=== PATIENT | male | born 1950 | race American Indian/Alaskan Native ===

== ENCOUNTER 2017-02-05 06:10 | Day surgery (SDC) | payer MEDICARE ==
[~2017-02-05 06:10] MED LIST: NACL 0.9% 1000 ML 1,000 ML IV SCH
[2017-02-05] MEDS ORDERED: FLUSH HEPARIN IV ONE (06:28)
[2017-02-05 07:23] LABS: Eosinophils % (Auto) 3.9 % (0.0-4.3); Hematocrit 36.9 % (35.5-45.6); Hemoglobin 12.4 gm/dl (11.8-15.2); Mean Corpuscular HGB Conc 34 % (32-34); Mean Corpuscular Hemoglobin 30 pg (28-32); Mean Corpuscular Volume 89 fl (84-94); Platelet Count 146 K/mm3 (140-440); Red Blood Count 4.15 M/mm3 (3.65-5.03)
[2017-02-05 07:38] LABS: BUN/Creatinine Ratio 18.18; Blood Urea Nitrogen 20 mg/dL (9-20); Calcium 9.1 mg/dL (8.4-10.2); Carbon Dioxide 26 mmol/L (22-30); Glucose 212 mg/dL (75-100); INR 1.1 (0.87-1.13); Sodium 138 mmol/L (137-145)
[2017-02-05 07:39] LABS: Partial Thromboplastin Time 27.5 Sec. (24.2-36.6)
[2017-02-05] MEDS ORDERED: HEPARIN/NS 5000 UNIT/500ML(CATH LAB) 1,000 ML IR ONE (07:49)
[2017-02-05] MEDS ORDERED: HEPARIN 10,000 UNITS/10 ML ONE (07:49)
[2017-02-05] MEDS ORDERED: ANCEF/STERILE WATER 2 GM/20 ML 2 GM/20 ML SYRINGE IV ONE (07:50)
[2017-02-05 08:24] LABS: Anion Gap 16 mmol/L
[2017-02-05 08:25] LABS: Potassium 5.3 mmol/L (3.6-5.0)
[2017-02-05] MEDS: XYLOCAINE 1%/ EPI 1:100,000 INFILTRATI ONE ×2 (08:36→08:50)
[2017-02-05] MEDS: ANCEF/STERILE WATER 2 GM/20 ML 2 GM/20 ML SYRINGE IV NR ×2 (08:45→08:55)
[2017-02-05] MEDS: VERSED ONE ×5 (08:53→09:36)
[2017-02-05] MEDS: SUBLIMAZE ONE ×5 (08:54→09:36)
[2017-02-05] MEDS ORDERED: NACL 0.9% 1000 ML 1,000 ML ONE (09:05)
[2017-02-05] MEDS ORDERED: NITROGLYCERIN SYRINGE 3 ML ONE (09:29)
--- NOTE | 2017-02-05 10:17 | Short Stay Summary ---
Short Stay Documentation Date of service: 02/05/17 Narrative H&P: See H&P - History H&P: obtained from office - Allergies and Medications Current Medications: Allergies No Known Allergies Allergy (Verified 02/13/15 12:20) Home Medications Medication Instructions Recorded Confirmed Last Taken Type Aspirin EC [Aspirin Enteric Coated 81 mg PO QDAY 02/05/17 02/05/17 02/02/17 History TAB] AtorvaSTATin [Lipitor] 40 mg PO HS 02/05/17 02/05/17 02/04/17 History Carvedilol [Coreg] 2 mg PO BID 02/05/17 02/05/17 02/04/17 History Furosemide [Furosemide] 40 mg PO QDAY 02/05/17 02/05/17 02/04/17 History Gabapentin [Neurontin] 800 mg PO Q8H 02/05/17 02/05/17 02/04/17 History Magnesium 30 mg PO QDAY 02/05/17 02/05/17 02/04/17 History Oxycodone HCl/Acetaminophen 1 each PO Q6HR PRN 02/05/17 02/05/17 02/04/17 History [Percocet 10/325 mg] Tizanidine HCl [Zanaflex] 4 mg PO TID PRN 02/05/17 02/05/17 02/04/17 History Active Medications Cefazolin Sodium (Ancef/Sterile Water 2 Gm/20 Ml) 2 gm in 20 mls @ 80 mls/hr IV PREOP NR PRN Reason: Protocol Stop: 02/05/17 23:59 Last Admin: 02/05/17 08:45 Dose: 20 mls Sodium Chloride (Nacl 0.9% 1000 Ml) 1,000 mls @ 42 mls/hr IV DIRECT MICHELLE Last Admin: 02/05/17 07:52 Dose: 42 mls/hr - Brief post op/procedure progress note Date of procedure: 02/05/17 Pre-op diagnosis: PVD with Right Lower Extremity Claudication Post-op diagnosis: same Procedure: 1. Ultrasound-Guided Access Left Common Femoral Artery 2. Diagnostic Aortogram with Right Lower Extremity Runoff (No Previous Fills for Comparison) 3. Atherectomy and Angioplasty of Right SFA and Popliteal Arteries with 2.4/ 3.4 JetStream Atherectomy Catheter and 6 x 100 Lutonix Drug-Coated Balloon 4. Angioplasty and Stenting of Right External Iliac Artery with 7 x 38 iCast Stent Graft 5. Closure of Left Femoral Arteriotomy with ProGlide Closure Device 6. Radiologic Supervision with Interpretation Anesthesia: local, other (IV sedation) Surgeon: JO WOOD Estimated blood loss: minimal Pathology: none Condition: stable - Disposition Condition at discharge: Good Disposition: DISCHARGED TO HOME OR SELFCARE Short Stay Discharge Plan Activity: other (no strenuous activity for 24 hours) Wound: open to air, keep clean and dry, remove dressing (24-hours) Follow up with: JO WOOD MD [Staff Physician] - 14 Days Prescriptions: Clopidogrel Bisulfate [Plavix] 75 mg PO DAILY #30 tablet
[2017-02-05] MEDS ORDERED: PLAVIX PO ONE (10:19)
--- NOTE | 2017-02-05 10:44 | Operative Report ---
Operative Report Operative Report: Date of Procedure: 02/05/2017 Pre-operative Diagnosis: PVD with Right Lower Extremity Claudication Post-operative Diagnosis: Same Procedure(s): 1. Ultrasound-Guided Access Left Common Femoral Artery 2. Diagnostic Aortogram with Right Lower Extremity Runoff (No Previous Fills for Comparison) 3. Atherectomy and Angioplasty of Right SFA and Popliteal Arteries with 2.4/ 3.4 JetStream Atherectomy Catheter and 6 x 100 Lutonix Drug-Coated Balloon 4. Angioplasty and Stenting of Right External Iliac Artery with 7 x 38 iCast Stent Graft 5. Closure of Left Femoral Arteriotomy with ProGlide Closure Device 6. Radiologic Supervision with Interpretation Surgeon: Nino Greenwood M.D. Mcat Instructor: None Anesthesia: Local and IV sedation EBL: Minimal Counts: Correct Complications: None Condition: Stable Specimen: None Indication: The patient is a 66-year-old male with a history of peripheral vascular disease and short distance claudication. He had an arterial duplex that suggested possible SFA and popliteal artery disease. He is in need of arteriogram and possible intervention to resolve his complaints. He was given the risk, benefits, and alternative procedures and consented to the procedure. Angiographic Findings: The aortogram demonstrated bilateral renal arteries widely patent. The aorta and bilateral common iliac arteries widely patent. There was approximately 60% stenosis of the proximal right external iliac artery. I was approximately 40% stenosis of the origin of the right internal iliac artery. The common femoral artery and the profunda widely patent. In the mid SFA that was approximately 60 % stenosis short segment and approximately 50% stenosis short segment of the distal SFA. The proximal popliteal artery was widely patent however there was approximately 95% stenosis and a short segment of the mid popliteal artery. The remainder of the popliteal artery was widely patent. The anterior tibial artery was occluded shortly after it's origin and reconstituted in the dorsalis pedis artery from collaterals off the peroneal artery. The peroneal artery was widely patent. The posterior tibial artery was atretic throughout its course and the distal posterior tibial artery filled retrograde through collaterals from the peroneal artery although there was no evidence of occlusion in the posterior tibial artery. After intervention the external iliac artery was widely patent without any residual stenosis. The lesion in the mid SFA had approximately 10% residual stenosis with a small dissection that was not flow- limiting. The remainder of the SFA as well as the entire popliteal artery were widely patent without any residual stenosis. Description of Procedure: The patient was brought to the laborer road and laid in supine position. After he was adequately sedated his left groin was prepped and draped in normal sterile fashion. Ultrasound was used to identify the left common femoral artery and overlying skin and soft tissue was anesthetized with lidocaine. A small stab incision was made and then a micropuncture technique was used to access the artery under ultrasound guidance. A 5 Kosovan sheath was then placed by Seldinger technique. A Bentson wire was advanced through the aorta and then the Omni Flush catheter was advanced to the level of the renal arteries and the aortogram was performed. The Bentson wire in catheter were advanced over the bifurcation and the right lower extremity runoff was performed with the previously described findings. I was able to cross all lesions using a Bentson wire and vertebral catheter. The 5 Kosovan sheath was then exchanged for a 67 Kosovan 45 cm destination sheath and at this point the patient was systemically heparinized with 5000 units of heparin IV. The Bentson wire was then exchanged for a 0.014 Spartacore wire. I advanced the 2.4/3.4 JetStream atherectomy catheter into position, just proximal to the SFA lesion, and performed atherectomy with both blades down and blades up. This was repeated on the remaining lesions in the distal SFA as well as the popliteal artery. I then performed balloon angioplasty of entire segment with a 6 x 200 balloon however at the proximalmost lesion there was residual stenosis of approximately 30% with an area of dissection so I balloon this with a 6 x 100 Lutonix Drug-Coated Balloon. The result was approximately 10% residual stenosis with a small dissection that was not flow-limiting. I then pulled the sheath back into the right common iliac artery and performed a left anterior oblique injection demonstrated the right external iliac artery stenosis. I treated this with a 7 x 38 iCast Balloon Expandable Stent Graft with a result of a widely patent artery with no residual stenosis. I pulled the sheath back into the left common iliac artery and advanced the Bentson wire into the aorta. I performed a left anterior oblique injection of the left common femoral artery to demonstrate this sheath was well above the bifurcation so I used the ProGlide device to close one left femoral arteriotomy. The patient tolerated the procedure well. All sponge, needle, and instrument counts were correct. The patient was taken to the recovery area in stable condition.
[2017-02-05 11:36] VITALS: BP 201/107
[2017-02-05] MEDS ORDERED: PERCOCET 5/325 PO ONE (12:01)
--- NOTE | 2017-02-05 15:58 | Vascular Lab Report ---
MISCELLANEOUS VESSEL IDENTIFICATION: COMMENTS ON THE SCAN: The left common femoral artery was identified and under real-time ultrasound guidance was cannulated. IMPRESSION: Successful ultrasound guided arterial cannulation.
== END 2017-02-05 12:45 | disposition home or self-care (01) ==
LOC: OPU 06:10
PROVIDERS: ATTEND Surgery Vascular Surgery
DX: I70.213 Atherosclerosis of native arteries of extremities with intermittent claudication, bilateral legs (principal); Z87.891 Personal history of nicotine dependence; Z79.01 Long term (current) use of anticoagulants
CPT/HCPCS: 36415; 37221; 37225; 75625; 75716; 76937; 80048; 85025; 85610; 85730; C1724; C1725; C1760; C1769; C1874; C1887; C2623; J0690; J1644; J2250; J3010; J7030; Q9967; J1642

== ENCOUNTER 2021-10-17 18:09 | Inpatient (IN) | payer MEDICARE ==
--- NOTE | 2021-10-17 19:43 | Emergency Department Report ---
ED Shortness of Breath HPI - General Chief Complaint: Dyspnea/Respdistress Stated Complaint: PEG/HIGH GLUCOSE Time Seen by Provider: 10/17/21 19:01 Source: patient Mode of arrival: Ambulatory Limitations: No Limitations - History of Present Illness Initial Comments: 71-year-old male with a past medical history of CHF, diabetes, hypertension, AICD and pacemaker presents to the hospital requesting oxygen for recently diagnosed Covid pneumonia. Patient was recently made to [facility] October 12- for Covid pneumonia. He was discharged on albuterol, Thorazine, Plavix, and dexamethasone. He was informed to discontinue his Lasix and spironolactone. Patient only complains of mild intermittent shortness of breath and persistent cough. Does not endorse chest pain, orthopnea, PND, worsening leg edema. Patient states when he was discharged from [facility], he was informed if he needed oxygen to come to the hospital. Patient is initial room air saturation is 96% without any respiratory distress noted during initial interview. Upon further interviewing patient he endorses that since discharge from the hospital and starting Decadron his glucose has been reading high on the glucometer. His states that he has been slight gauge had generalized weakness with ambulation. Patient takes Tresiba sliding scale subcu, Metformin 500 mg twice daily for glucose greater than 170-180 and glimepiride unknown dose daily. Despite these medications glucose has remained elevated. BG 433 Patient's medications include Atorvastatin 80 mg daily Metformin 500 mg twice daily RELION glucose tablets as needed Carvedilol 12.5 mg twice daily Tresiba sliding scale insulin Amlodipine 5 mg daily Albuterol inhaler Dexamethasone 60 mg daily x6 days started on October 15 Thorazine 25 mg 3 times daily as needed hiccups Plavix 25 mg daily and patient also states that he is on questionable glimepiride unknown dose daily Meds on hold Spironolactone 25 mg daily Furosemide 40 mg daily - Related Data Home Medications Medication Instructions Recorded Confirmed Last Taken Aspirin EC [Halfprin EC] 81 mg PO QDAY 02/05/17 09/26/19 02/02/17 AtorvaSTATin [Lipitor] 40 mg PO HS 02/05/17 09/26/19 02/04/17 Furosemide 40 mg PO QDAY 02/05/17 09/26/19 02/04/17 Gabapentin [Neurontin] 800 mg PO Q8H 02/05/17 09/26/19 02/04/17 Magnesium 30 mg PO QDAY 02/05/17 09/26/19 02/04/17 Oxycodone HCl/Acetaminophen 1 each PO Q6HR PRN 02/05/17 09/26/19 02/04/17 [Percocet 10/325 mg] Tizanidine HCl [Zanaflex] 4 mg PO TID PRN 02/05/17 09/26/19 02/04/17 carvediloL [Coreg] 2 mg PO BID 02/05/17 09/26/19 02/04/17 Previous Rx's Medication Instructions Recorded Last Taken Type Clopidogrel Bisulfate [Plavix] 75 mg PO DAILY #30 tablet 02/05/17 Unknown Rx Azithromycin [Zithromax TAB] 500 mg PO QDAY #3 tablet 09/27/19 Unknown Rx Oseltamivir [Tamiflu] 75 mg PO BID #6 capsule 09/27/19 Unknown Rx Spironolactone [Aldactone] 25 mg PO QDAY #30 tablet 09/27/19 Unknown Rx amLODIPine 10 mg PO DAILY #30 tablet 09/27/19 Unknown Rx lisinopriL [Zestril TAB] 20 mg PO DAILY #30 tablet 09/27/19 Unknown Rx Allergies Allergy/AdvReac Type Severity Reaction Status Date / Time No Known Allergies Allergy Verified 02/13/15 12:20 ED Review of Systems ROS: Stated complaint: PEG/HIGH GLUCOSE Other details as noted in HPI Comment: All other systems reviewed and negative ED Past Medical Hx - Past Medical History Hx Hypertension: Yes Hx Congestive Heart Failure: Yes Hx Diabetes: Yes (pt takes insulin) Hx Arthritis: Yes Hx HIV: No - Surgical History Hx Pacemaker: Yes Hx Internal Defibrillator: Yes - Social History Smoking Status: Never Smoker - Medications Home Medications: Home Medications Medication Instructions Recorded Confirmed Last Taken Type Aspirin EC [Halfprin EC] 81 mg PO QDAY 02/05/17 09/26/19 02/02/17 History AtorvaSTATin [Lipitor] 40 mg PO HS 02/05/17 09/26/19 02/04/17 History Clopidogrel Bisulfate [Plavix] 75 mg PO DAILY #30 tablet 02/05/17 09/26/19 Unknown Rx Furosemide 40 mg PO QDAY 02/05/17 09/26/19 02/04/17 History Gabapentin [Neurontin] 800 mg PO Q8H 02/05/17 09/26/19 02/04/17 History Magnesium 30 mg PO QDAY 02/05/17 09/26/19 02/04/17 History Oxycodone HCl/Acetaminophen 1 each PO Q6HR PRN 02/05/17 09/26/19 02/04/17 History [Percocet 10/325 mg] Tizanidine HCl [Zanaflex] 4 mg PO TID PRN 02/05/17 09/26/19 02/04/17 History carvediloL [Coreg] 2 mg PO BID 02/05/17 09/26/19 02/04/17 History Azithromycin [Zithromax TAB] 500 mg PO QDAY #3 tablet 09/27/19 Unknown Rx Oseltamivir [Tamiflu] 75 mg PO BID #6 capsule 09/27/19 Unknown Rx Spironolactone [Aldactone] 25 mg PO QDAY #30 tablet 09/27/19 Unknown Rx amLODIPine 10 mg PO DAILY #30 tablet 09/27/19 Unknown Rx lisinopriL [Zestril TAB] 20 mg PO DAILY #30 tablet 09/27/19 Unknown Rx ED Physical Exam - General Limitations: No Limitations - Other Other exam information: General: No acute distress Head: Atraumatic Eyes: normal appearance Neck: Normal appearance, no midline tenderness Chest: Clear to auscultation bilaterally, frequent cough CV: Regular rate and rhythm Abdomen: Soft, normal bowel sounds, nontender, nondistended, no rebound or guarding Back: Normal inspection Extremity: Normal inspection, full range of motion, no calf tenderness or leg edema Neuro: Alert O x 3, no facial asymmetry, speech clear, no gross motor sensory deficit Psych: Appropriate behavior Skin: No rash ED Course Vital Signs 10/17/21 18:49 Temperature 98.5 F Pulse Rate 89 Respiratory 20 Rate Blood Pressure 153/77 O2 Sat by Pulse 96 Oximetry - Reevaluation(s) Reevaluation #1: 10/17/21 19:55 Patient's saturation at rest 95%. Amatory sat 93%. Based on this patient does not meet criteria for home oxygen saturation Blood glucose 433 patient is now agreeable to labs and blood work at this time Reevaluation #2: 10/17/21 21:20 Patient does not currently have IV access. Patient refused to transfer EJ. Nurses will attempt peripheral access with the vein finder ED Medical Decision Making - Lab Data Result diagrams: 10/17/21 19:54 10/17/21 19:54 Lab Results 10/17/21 10/17/21 10/17/21 Range/Units 19:37 19:54 19:54 WBC 16.4 H (4.5-11.0) K/mm3 RBC 4.48 (3.65-5.03) M/mm3 Hgb 12.0 (11.8-15.2) gm/dl Hct 38.1 (35.5-45.6) % MCV 85 (84-94) fl MCH 27 L (28-32) pg MCHC 32 (32-34) % RDW 14.9 (13.2-15.2) % Plt Count 303 (140-440) K/mm3 Seg Neutrophils % Business Manager VBG pH (7.320-7.420) Sodium 129 L (137-145) mmol/L Potassium 5.9 H (3.6-5.0) mmol/L Chloride 95.3 L (98-107) mmol/L Carbon Dioxide 20 L (22-30) mmol/L Anion Gap 20 mmol/L BUN 56 H (9-20) mg/dL Creatinine 2.0 H (0.8-1.3) mg/dL Estimated GFR 40 ml/min BUN/Creatinine Ratio 28 % Glucose 480 H (75-100) mg/dL POC Glucose 433 H (70-105) mg/dL Calcium 9.2 (8.4-10.2) mg/dL Total Bilirubin 0.40 (0.1-1.2) mg/dL AST 24 (5-40) units/L ALT 41 (7-56) units/L Alkaline Phosphatase 146 H (35-129) units/L Troponin T (0.00-0.029) ng/mL Total Protein 7.3 (6.3-8.2) g/dL Albumin 3.4 L (3.9-5) g/dL Albumin/Globulin Ratio 0.9 % 10/17/21 10/17/21 Range/Units 19:54 19:54 WBC (4.5-11.0) K/mm3 RBC (3.65-5.03) M/mm3 Hgb (11.8-15.2) gm/dl Hct (35.5-45.6) % MCV (84-94) fl MCH (28-32) pg MCHC (32-34) % RDW (13.2-15.2) % Plt Count (140-440) K/mm3 Seg Neutrophils % VBG pH 7.384 (7.320-7.420) Sodium (137-145) mmol/L Potassium (3.6-5.0) mmol/L Chloride (98-107) mmol/L Carbon Dioxide (22-30) mmol/L Anion Gap mmol/L BUN (9-20) mg/dL Creatinine (0.8-1.3) mg/dL Estimated GFR ml/min BUN/Creatinine Ratio % Glucose (75-100) mg/dL POC Glucose (70-105) mg/dL Calcium (8.4-10.2) mg/dL Total Bilirubin (0.1-1.2) mg/dL AST (5-40) units/L ALT (7-56) units/L Alkaline Phosphatase (35-129) units/L Troponin T 0.064 H (0.00-0.029) ng/mL Total Protein (6.3-8.2) g/dL Albumin (3.9-5) g/dL Albumin/Globulin Ratio % - EKG Data -: EKG Interpreted by Me (atrial sensed, ventriuclar paced rhythm rate 84) EKG shows normal: sinus rhythm, ST-T waves (no stemi) Rate: normal - Radiology Data Radiology results: report reviewed CHEST PA AND LATERAL VIEWS INDICATION: recent covid, sob. COMPARISON: 09/24/2019 FINDINGS: Support devices: Cardiac leads are unchanged. Heart: Within normal limits. Lungs/Pleura: There is mild airspace disease in the right lower lobe. Left lung appears clear. No pleural abnormality. IMPRESSION: 1. Mild right lower lobe airspace disease concerning for pneumonia. - Medical Decision Making 71-year-old male presents to the hospital with symptoms of generalized weakness and hyperglycemia. No signs of significant hypoxia requiring supplemental ox ygen. Suspect that patient generalized weakness is related to hyperglycemia secondary to steroids despite taking his diabetes medications. Case discussed with respiratory technician and will consult. Medications ordered for hyperkalemia. Patient to be admitted to hospital service Critical Care Time: Yes Critical care time in (mins) excluding proc time.: 35 Critical care attestation.: If time is entered above; I have spent that time in minutes in the direct care of this critically ill patient, excluding procedure time. Critical Care Time: 035 Minutes of critical care time excluding procedures were used in the care of the patient. I discussed treatment plan with the nursing team members. I r eviewed electronic record. I spoke with family to obtain medical history. Patient required multiple interventions and reassessments. Spoke with hospitalist and consultants for collaborative care. Patient will be admitted to night hospitalist. Signout to Dr. Solomon to communicate with the night ospitalist ED Disposition Clinical Impression: Pneumonia due to COVID-19 virus, Steroid-induced hyperglycemia, Uncontrolled diabetes mellitus, Hyperkalemia, Renal insufficiency Disposition: ADMITTED INPATIENT Is pt being admited?: Yes Condition: Stable Instructions: Bacterial Pneumonia (ED), Diabetes Mellitus Type 2 in Adults (ED) Time of Disposition: 21:15
[2021-10-17] MEDS ORDERED: INSULIN REGULAR, HUMAN 100 UNITS/1 ML IV ONE (19:50)
[2021-10-17 20:11] LABS: Hematocrit 38.1 % (35.5-45.6); Mean Corpuscular HGB Conc 32 % (32-34); Mean Corpuscular Volume 85 fl (84-94); Platelet Count 303 K/mm3 (140-440); Red Blood Count 4.48 M/mm3 (3.65-5.03); Red Cell Distribution Width 14.9 % (13.2-15.2)
[2021-10-17 20:34] LABS: Albumin 3.4 g/dL (3.9-5); Calcium 9.2 mg/dL (8.4-10.2)
--- NOTE | 2021-10-17 20:38 | XRay Report ---
CHEST PA AND LATERAL VIEWS INDICATION: recent covid, sob. COMPARISON: 09/24/2019 FINDINGS: Support devices: Cardiac leads are unchanged. Heart: Within normal limits. Lungs/Pleura: There is mild airspace disease in the right lower lobe. Left lung appears clear. No ple ural abnormality. IMPRESSION: 1. Mild right lower lobe airspace disease concerning for pneumonia. Signer Name: Abiodun Gee MD Signed: 10/17/2021 8:33 PM Workstation Name: [email or web address]
[2021-10-17] MEDS ORDERED: ALBUTEROL 2.5 MG/3 ML NEBU IH ONE (20:55)
[2021-10-17] MEDS ORDERED: SODIUM BICARB 8.4% 50 MEQ/50 ML SYRINGE IV ONE (20:57)
[2021-10-17] MEDS ORDERED: SODIUM POLYSTYRENE 15 GM/60 ML ORAL LIQD PO ONE (20:57)
[2021-10-17] MEDS ORDERED: SODIUM POLYSTYRENE 15 GM/60 ML ORAL LIQD PR ONE (21:07)
[2021-10-17] MEDS ORDERED: FUROSEMIDE 40 MG/4 ML INJ IV ONE (21:13)
[2021-10-17] MEDS ORDERED: SODIUM CHLORIDE 0.9% 500 ML 500 ML IV ONE (21:14)
[2021-10-17] MEDS ORDERED: SODIUM CHLORIDE 0.9% 1000 ML 1,000 ML IV ONE (21:14)
[2021-10-17 21:29] LABS: Chol/HDL Ratio 3.16 %
[2021-10-17] MEDS ORDERED: CALC GLUCONATE 1GM/NS 100 ML 1 GM/100 ML BAG IV ONE (22:00)
[2021-10-17] MEDS ORDERED: ONDANSETRON 4 MG/2 ML INJ IV PRN ×2 (22:23→22:42)
[2021-10-17] MEDS ORDERED: ACETAMINOPHEN 325 MG TAB PO PRN ×2 (22:23→22:42)
[2021-10-17] MEDS ORDERED: HYDROmorphone 1 MG/1 ML INJ IV PRN (22:42)
[2021-10-17] MEDS ORDERED: MORPHINE 2 MG/1 ML INJ IV PRN (22:42)
[2021-10-17] MEDS ORDERED: DEXTROSE 50% IN WATER (25GM) 50 ML SYRINGE IV PRN (22:46)
--- NOTE | 2021-10-17 22:51 | History and Physical Report ---
History of Present Illness Date of examination: 10/17/21 Date of admission: 10/17/21 Chief complaint: Dyspnea, respiratory distress History of present illness: 71-year-old male with history of CHF, diabetes, hypertension, AICD and pacemaker presents to the hospital requesting oxygen for recently diagnosed Covid pneumonia. Patient was recently admitted to [facility] October 12 for Covid pneumonia. He was discharged on albuterol, Thorazine, Plavix, and dex amethasone. He was informed to discontinue his Lasix and spironolactone. Patient only complains of mild intermittent shortness of breath and persistent cough. Does not endorse chest pain, orthopnea, PND, worsening leg edema. Patient states when he was discharged from [facility], he was informed if he needed oxygen to come to the hospital. Patient is initial room air saturation is 96% without any respiratory distress noted during initial interview. Upon further interviewing patient he endorses that since discharge from the hospital and starting Decadron his glucose has been reading high on the glucometer. His states that he has been slight gauge had generalized weakness with a mbulation. Patient takes Tresiba sliding scale subcu, Metformin 500 mg twice daily for glucose greater than 170-180 and glimepiride unknown dose daily. Despite these medications glucose has remained elevated. BG 433 In the emergency room patient WBC 16.4, BUN of 56 creatinine of 2.0 and blood gl ucose of 480, chest x-ray showed mild right lower lobe airspace disease concerning for pneumonia. No signs of significant hypoxia requiring supplemental oxygen. Suspect that patient generalized weakness is related to hyperglycemia secondary to steroids despite taking his diabetes medications. Case discussed with program/music director and will consult. Medications ordered for hyperkalemia. Patient to be admitted to hospital service Past History Past Medical History: arthritis, diabetes, heart failure, hypertension, other ( COVID-19 positive test (U07.1, COVID-19) with Acute Pneumonia (J12.89, Other viral pneumonia)(If respiratory failure or sepsis present, add as separate assessment) ) Medications and Allergies Allergies Allergy/AdvReac Type Severity Reaction Status Date / Time No Known Allergies Allergy Verified 02/13/15 12:20 Home Medications Medication Instructions Recorded Confirmed Last Taken Type Aspirin EC [Halfprin EC] 81 mg PO QDAY 02/05/17 09/26/19 02/02/17 History AtorvaSTATin [Lipitor] 40 mg PO HS 02/05/17 09/26/19 02/04/17 History Clopidogrel Bisulfate [Plavix] 75 mg PO DAILY #30 tablet 02/05/17 09/26/19 Unknown Rx Furosemide 40 mg PO QDAY 02/05/17 09/26/19 02/04/17 History Gabapentin [Neurontin] 800 mg PO Q8H 02/05/17 09/26/19 02/04/17 History Magnesium 30 mg PO QDAY 02/05/17 09/26/19 02/04/17 History Oxycodone HCl/Acetaminophen 1 each PO Q6HR PRN 02/05/17 09/26/19 02/04/17 History [Percocet 10/325 mg] Tizanidine HCl [Zanaflex] 4 mg PO TID PRN 02/05/17 09/26/19 02/04/17 History carvediloL [Coreg] 2 mg PO BID 02/05/17 09/26/19 02/04/17 History Azithromycin [Zithromax TAB] 500 mg PO QDAY #3 tablet 09/27/19 Unknown Rx Oseltamivir [Tamiflu] 75 mg PO BID #6 capsule 09/27/19 Unknown Rx Spironolactone [Aldactone] 25 mg PO QDAY #30 tablet 09/27/19 Unknown Rx amLODIPine 10 mg PO DAILY #30 tablet 09/27/19 Unknown Rx lisinopriL [Zestril TAB] 20 mg PO DAILY #30 tablet 09/27/19 Unknown Rx Active Meds: Active Medications Acetaminophen (Acetaminophen 325 Mg Tab) 650 mg PO Q4H PRN PRN Reason: Pain MILD(1-3)/Fever >100.5/[place] Amlodipine Besylate (Amlodipine 10 Mg Tab) 10 mg PO DAILY [facility] Aspirin (Aspirin Ec 81 Mg Tab) 81 mg PO QDAY [facility] Atorvastatin Calcium (Atorvastatin 40 Mg Tab) 40 mg PO HS [facility] Carvedilol (Carvedilol 3.125 Mg Tab) 2 mg PO BID [facility] Clopidogrel Bisulfate (Clopidogrel 75 Mg Tab) 75 mg PO DAILY [facility] Dextrose (Dextrose 50% In Water (25gm) 50 Ml Syringe) 50 ml IV Q30MIN PRN; Protocol PRN Reason: Hypoglycemia Famotidine (Famotidine 20 Mg Tab) 20 mg PO BID [facility] Heparin Sodium (Porcine) (Heparin 5,000 Unit/1 Ml Vial) 5,000 unit SUB-Q Q8HR [facility] Hydromorphone HCl (Hydromorphone 1 Mg/1 Ml Inj) 0.5 mg IV Q3H PRN PRN Reason: Pain , Severe (7-10) Ceftriaxone Sodium (Rocephin/Ns 2 Gm/100 Ml) 2 gm in 100 mls @ 200 mls/hr IV Q24H MICHELLE; Protocol Azithromycin (Zithromax/Ns) 500 mg in 250 mls @ 250 mls/hr IV Q24H [facility]HELLE; Protocol Insulin Human Lispro (Insulin Lispro 100 Unit/Ml) 0 unit SUB-Q ACHS MICHELLE; Protocol Lisinopril (Lisinopril 20 Mg Tab) 20 mg PO DAILY [facility] Miscellaneous Medication (Magnesium [Magnesium]) 30 mg PO QDAY [facility] Morphine Sulfate (Morphine 2 Mg/1 Ml Inj) 2 mg IV Q4H PRN PRN Reason: Pain, Moderate (4-6) Ondansetron HCl (Ondansetron 4 Mg/2 Ml Inj) 4 mg IV Q8H PRN PRN Reason: Nausea And Vomiting Ondansetron HCl (Ondansetron 4 Mg/2 Ml Inj) 4 mg IV Q8H PRN PRN Reason: Nausea And Vomiting Oseltamivir Phosphate (Oseltamivir 75 Mg Cap) 75 mg PO BID [facility] Sodium Chloride (Sodium Chloride 0.9% 10 Ml Flush Syringe) 10 ml IV BID [facility] Sodium Chloride (Sodium Chloride 0.9% 10 Ml Flush Syringe) 10 ml IV PRN PRN PRN Reason: LINE FLUSH Sodium Chloride (Sodium Chloride 0.9% 10 Ml Flush Syringe) 10 ml IV BID [facility] Sodium Chloride (Sodium Chloride 0.9% 10 Ml Flush Syringe) 10 ml IV PRN PRN PRN Reason: LINE FLUSH Review of Systems All systems: negative Constitutional: weakness Cardiovascular: shortness of breath, dyspnea on exertion Respiratory: shortness of breath, dyspnea on exertion Exam - Constitutional Vitals: Temp Pulse Resp BP Pulse Ox 98.5 F 91 H 20 153/77 96 10/17/21 18:49 10/17/21 21:22 10/17/21 21:22 10/17/21 18:49 10/17/21 18:49 General appearance: Present: no acute distress, well-nourished - EENT Eyes: Present: PERRL ENT: hearing intact, clear oral mucosa - Neck Neck: Present: supple, normal ROM - Respiratory Respiratory effort: normal Respiratory: bilateral: diminished - Cardiovascular Heart Sounds: Present: S1 & S2. Absent: rub, click - Extremities Extremities: pulses symmetrical, No edema Peripheral Pulses: within normal limits - Abdominal General gastrointestinal: Present: soft, non-tender, non-distended, normal bowel sounds Male genitourinary: Present: normal - Integumentary Integumentary: Present: clear, warm, dry - Musculoskeletal Musculoskeletal: gait normal, strength equal bilaterally - Psychiatric Psychiatric: appropriate mood/affect, intact judgment & insight - Neurologic Neurologic: CNII-XII intact, moves all extremities HEART Score - HEART Score Troponin: Troponin T 0.064 ng/mL (0.00-0.029) H 10/17/21 19:54 Results - Labs CBC & Chem 7: 10/17/21 19:54 10/17/21 19:54 Labs: Laboratory Last Values WBC 16.4 K/mm3 (4.5-11.0) H 10/17/21 19:54 RBC 4.48 M/mm3 (3.65-5.03) 10/17/21 19:54 Hgb 12.0 gm/dl (11.8-15.2) 10/17/21 19:54 Hct 38.1 % (35.5-45.6) 10/17/21 19:54 MCV 85 fl (84-94) 10/17/21 19:54 MCH 27 pg (28-32) L 10/17/21 19:54 MCHC 32 % (32-34) 10/17/21 19:54 RDW 14.9 % (13.2-15.2) 10/17/21 19:54 Plt Count 303 K/mm3 (140-440) 10/17/21 19:54 Seg Neutrophils % Pin Machine Operator 10/17/21 19:54 VBG pH 7.384 (7.320-7.420) 10/17/21 19:54 Sodium 129 mmol/L (137-145) L 10/17/21 19:54 Potassium 5.9 mmol/L (3.6-5.0) H 10/17/21 19:54 Chloride 95.3 mmol/L (98-107) L 10/17/21 19:54 Carbon Dioxide 20 mmol/L (22-30) L 10/17/21 19:54 Anion Gap 20 mmol/L 10/17/21 19:54 BUN 56 mg/dL (9-20) H 10/17/21 19:54 Creatinine 2.0 mg/dL (0.8-1.3) H 10/17/21 19:54 Estimated GFR 40 ml/min 10/17/21 19:54 BUN/Creatinine Ratio 28 % 10/17/21 19:54 Glucose 480 mg/dL (75-100) H 10/17/21 19:54 POC Glucose 433 mg/dL (70-105) H 10/17/21 19:37 Calcium 9.2 mg/dL (8.4-10.2) 10/17/21 19:54 Total Bilirubin 0.40 mg/dL (0.1-1.2) 10/17/21 19:54 AST 24 units/L (5-40) 10/17/21 19:54 ALT 41 units/L (7-56) 10/17/21 19:54 Alkaline Phosphatase 146 units/L (35-129) H 10/17/21 19:54 Troponin T 0.064 ng/mL (0.00-0.029) H 10/17/21 19:54 Total Protein 7.3 g/dL (6.3-8.2) 10/17/21 19:54 Albumin 3.4 g/dL (3.9-5) L 10/17/21 19:54 Albumin/Globulin Ratio 0.9 % 10/17/21 19:54 Triglycerides 248 mg/dL (2-149) H 10/17/21 19:54 Cholesterol 98 mg/dL (50-199) 10/17/21 19:54 LDL Cholesterol Direct 44 mg/dL (50-130) L 10/17/21 19:54 HDL Cholesterol 31 mg/dL (40-59) L 10/17/21 19:54 Cholesterol/HDL Ratio 3.16 % 10/17/21 19:54 - Imaging and Cardiology Chest x-ray: report reviewed Assessment and Plan VTE prophylaxis?: Chemical Plan of care discussed with patient/family: Yes - Patient Problems (1) Pneumonia due to COVID-19 virus Current Visit: Yes Status: Acute Plan to address problem: Admit the patient to the medical floor. Oxygen by nasal cannula 3 department Du oNeb by nebulizer every 4 hours. Albuterol by nebulizer every 4 hours as needed. Rocephin 2 g IV daily. Zithromax 500 mg IV daily. We do the blood culture sputum culture. We will monitor the patient closely if needed reconsult infectious disease and pulmonary (2) ROMANA (acute kidney injury) Current Visit: Yes Status: Acute Plan to address problem: Avoid nephrotoxic drug. Renally dose medication. We will hold Lasix and spironolactone. Nephrology evaluation. Recheck BMP in the morning (3) Hyperkalemia Current Visit: Yes Status: Acute Plan to address problem: Patient already get insulin Kayexalate. And other hyperkalemia medication. We will hold Lasix and spironolactone. Nephrology evaluation. Recheck BMP in the morning (4) Hypertension Current Visit: Yes Status: Acute Plan to address problem: Amlodipine 10 mg p.o. daily. Lisinopril 20 mg p.o. daily. We will monitor the blood pressure closely (5) Steroid-induced hyperglycemia Current Visit: Yes Status: Acute Plan to address problem: 1800 kcal ADA diet. Accu-Chek before meals and at bedtime with Humalog moderate dose coverage. Diabetic education (6) Uncontrolled diabetes mellitus Current Visit: Yes Status: Acute Plan to address problem: 1800 kcal ADA diet. Accu-Chek before meals and at bedtime with Humalog moderate dose coverage. Diabetic education (7) CHF exacerbation Current Visit: No Status: Acute Plan to address problem: Fluid restriction. Maintain input output. Daily weight. Outpatient cardiology evaluation (8) DVT prophylaxis Current Visit: Yes Status: Acute Plan to address problem: Heparin 5000 units subcu every 8 hours for DVT prophylaxis. Pepcid 20 mg p.o. twice daily for GI prophylaxis. Patient is a full code
[2021-10-17] MEDS ORDERED: DEXTROSE 10% *Hypoglycemia IV PRN (22:59)
[2021-10-17 23:42] LABS: Bilirubin,Urine NEG (Negative); Blood,Urine NEG (Negative); Color,Urine Yellow (Yellow); Hyaline Casts,Urine 1 /LPF; Mucus,Urine FEW /HPF; Urobilinogen,Urine < 2.0 mg/dL (<2.0)
[2021-10-18] MEDS ORDERED: SODIUM POLYSTYRENE 15 GM/60 ML ORAL LIQD ONE (01:19)
[2021-10-18] MEDS ORDERED: SODIUM CHLORIDE 0.9% 1000 ML 1,000 ML ONE (01:20)
[2021-10-18] MEDS ORDERED: SODIUM BICARB 8.4% 50 MEQ/50 ML SYRINGE IV ONE (01:20)
[2021-10-18] MEDS ORDERED: INSULIN REGULAR, HUMAN 100 UNITS/1 ML ONE (01:21)
[2021-10-18] MEDS: AZITHROMYCIN/NS 500 MG/250 ML 500 MG/250 ML BAG IV SCH ×2 (01:48→22:36)
[2021-10-18] MEDS: cefTRIAXone/NS 2 GM/100 ML 2 GM/100 ML BAG IV SCH ×2 (01:48→22:36)
[2021-10-18 03:34] LABS: Anisocytosis 1+; Basophils % (Manual) 0 % (0.0-1.8); Eosinophils % (Manual) 0 % (0.0-4.3); Total Cells Counted 100
[2021-10-18 03:35] LABS: Platelet Estimate Consistent w Auto
[2021-10-18 05:02] LABS: Calcium 9.7 mg/dL (8.4-10.2)
[2021-10-18 05:11] LABS: Basophils % (Auto) 0.1 % (0.0-1.8); Eosinophils % (Auto) 0.3 % (0.0-4.3); Hemoglobin 12.7 gm/dl (11.8-15.2); Lymphocytes # (Auto) 0.8 K/mm3 (1.2-5.4); Lymphocytes % (Auto) 5.6 % (13.4-35.0); Mean Corpuscular HGB Conc 32 % (32-34); Mean Corpuscular Volume 87 fl (84-94); Monocytes # (Auto) 0.9 K/mm3 (0.0-0.8); Monocytes % (Auto) 6.3 % (0.0-7.3); Platelet Count 312 K/mm3 (140-440); Red Blood Count 4.62 M/mm3 (3.65-5.03); Red Cell Distribution Width 14.6 % (13.2-15.2)
[2021-10-18] MEDS ORDERED: CALC GLUCONATE 1GM/NS 100 ML 1 GM/100 ML BAG IV ONE (05:45)
[2021-10-18] MEDS ORDERED: SODIUM POLYSTYRENE 15 GM/60 ML ORAL LIQD PO SCH (06:00)
[2021-10-18] MEDS: HEPARIN 5,000 UNIT/1 ML VIAL SUB-Q SCH ×3 (06:45→22:14)
[2021-10-18] MEDS ORDERED: INSULIN REGULAR, HUMAN 100 UNITS/1 ML IV ONE (09:45)
[2021-10-18] MEDS ORDERED: SODIUM POLYSTYRENE 15 GM/60 ML ORAL LIQD PO ONE ×2 (09:45→19:20)
[2021-10-18] MEDS ORDERED: DEXTROSE 50% IN WATER (25GM) 50 ML SYRINGE IV ONE ×2 (09:46→12:00)
[2021-10-18] MEDS ORDERED: ALBUTEROL 2.5 MG/3 ML NEBU IH ONE (09:47)
--- NOTE | 2021-10-18 09:51 | Consultation ---
History of Present Illness - Reason for Consult Consult date: 10/18/21 acute renal failure - History of Present Illness 71-year-old male with history of CHF, diabetes, hypertension, AICD and pac emaker admitted with SHOB, cough and found to have PNA. Pt was recently dx with Covid. He also has hyperkalemia and ROMANA. He denies chest pain, orthopnea, PND, worsening leg edema. His K is high. ROS: As in HPI otherwise 12 point review of systems -ve Past History Past Medical History: arthritis, diabetes, heart failure, hypertension, other ( COVID-19 positive test (U07.1, COVID-19) with Acute Pneumonia (J12.89, Other viral pneumonia)(If respiratory failure or sepsis present, add as separate assessment) ) Medications and Allergies Allergies Allergy/AdvReac Type Severity Reaction Status Date / Time No Known Allergies Allergy Verified 02/13/15 12:20 Home Medications Medication Instructions Recorded Confirmed Last Taken Type Aspirin EC [Halfprin EC] 81 mg PO QDAY 02/05/17 09/26/19 02/02/17 History AtorvaSTATin [Lipitor] 40 mg PO HS 02/05/17 09/26/19 02/04/17 History Clopidogrel Bisulfate [Plavix] 75 mg PO DAILY #30 tablet 02/05/17 09/26/19 Unknown Rx Furosemide 40 mg PO QDAY 02/05/17 09/26/19 02/04/17 History Gabapentin [Neurontin] 800 mg PO Q8H 02/05/17 09/26/19 02/04/17 History Magnesium 30 mg PO QDAY 02/05/17 09/26/19 02/04/17 History Oxycodone HCl/Acetaminophen 1 each PO Q6HR PRN 02/05/17 09/26/19 02/04/17 History [Percocet 10/325 mg] Tizanidine HCl [Zanaflex] 4 mg PO TID PRN 02/05/17 09/26/19 02/04/17 History carvediloL [Coreg] 2 mg PO BID 02/05/17 09/26/19 02/04/17 History Azithromycin [Zithromax TAB] 500 mg PO QDAY #3 tablet 09/27/19 Unknown Rx Oseltamivir [Tamiflu] 75 mg PO BID #6 capsule 09/27/19 Unknown Rx Spironolactone [Aldactone] 25 mg PO QDAY #30 tablet 09/27/19 Unknown Rx amLODIPine 10 mg PO DAILY #30 tablet 09/27/19 Unknown Rx lisinopriL [Zestril TAB] 20 mg PO DAILY #30 tablet 09/27/19 Unknown Rx Active Meds: Active Medications Acetaminophen (Acetaminophen 325 Mg Tab) 650 mg PO Q4H PRN PRN Reason: Pain MILD(1-3)/Fever >100.5/[place] Albuterol (Albuterol 2.5 Mg/3 Ml Nebu) 10 mg IH ONCE ONE Stop: 10/18/21 09:48 Amlodipine Besylate (Amlodipine 10 Mg Tab) 10 mg PO DAILY [facility] Aspirin (Aspirin Ec 81 Mg Tab) 81 mg PO QDAY [facility] Atorvastatin Calcium (Atorvastatin 40 Mg Tab) 40 mg PO HS [facility] Carvedilol (Carvedilol 3.125 Mg Tab) 2 mg PO BID [facility] Clopidogrel Bisulfate (Clopidogrel 75 Mg Tab) 75 mg PO DAILY [facility] Dexamethasone (Dexamethasone 4 Mg/Ml Vial) 6 mg IV DAILY [facility] Dextrose (Dextrose 10% *Hypoglycemia) 0 ml IV PRN PRN; Protocol PRN Reason: Hypoglycemia Dextrose (Dextrose 50% In Water (25gm) 50 Ml Syringe) 50 ml IV ONCE ONE Stop: 10/18/21 09:47 Famotidine (Famotidine 10 Mg Tab) 10 mg PO BID [facility] Heparin Sodium (Porcine) (Heparin 5,000 Unit/1 Ml Vial) 5,000 unit SUB-Q Q8HR [facility] Last Admin: 10/18/21 06:45 Dose: 5,000 unit Hydromorphone HCl (Hydromorphone 1 Mg/1 Ml Inj) 0.5 mg IV Q3H PRN PRN Reason: Pain , Severe (7-10) Ceftriaxone Sodium (Rocephin/Ns 2 Gm/100 Ml) 2 gm in 100 mls @ 200 mls/hr IV Q24H [facility]HELLE; Protocol Last Admin: 10/18/21 01:48 Dose: 200 mls/hr Azithromycin (Zithromax/Ns) 500 mg in 250 mls @ 250 mls/hr IV Q24H [facility]HELLE; Pr otocol Last Admin: 10/18/21 01:48 Dose: 250 mls/hr Insulin Human Lispro (Insulin Lispro 100 Unit/Ml) 0 unit SUB-Q ACHS [facility]HELLE; Protocol Insulin Human Regular (Insulin Regular, Human 100 Units/1 Ml) 10 units IV ONCE ONE Stop: 10/18/21 09:46 Miscellaneous Medication (Magnesium [Magnesium]) 30 mg PO QDAY [facility] Morphine Sulfate (Morphine 2 Mg/1 Ml Inj) 2 mg IV Q4H PRN PRN Reason: Pain, Moderate (4-6) Ondansetron HCl (Ondansetron 4 Mg/2 Ml Inj) 4 mg IV Q8H PRN PRN Reason: Nausea And Vomiting Oseltamivir Phosphate (Oseltamivir 75 Mg Cap) 75 mg PO BID [facility] Sodium Chloride (Sodium Chloride 0.9% 10 Ml Flush Syringe) 10 ml IV BID [facility] Sodium Chloride (Sodium Chloride 0.9% 10 Ml Flush Syringe) 10 ml IV PRN PRN PRN Reason: LINE FLUSH Sodium Polystyrene Sulfonate (Sodium Polystyrene 15 Gm/60 Ml Oral Liqd) 60 gm PO ONCE ONE Stop: 10/18/21 09:46 Exam - Vital Signs Vital signs: Vital Signs Temp Pulse Resp BP Pulse Ox 98.5 F 89 20 153/77 96 10/17/21 18:49 10/17/21 18:49 10/17/21 18:49 10/17/21 18:49 10/17/21 18:49 - Physical Exam Narrative exam: General appearance: Present: no acute distress, well-nourished - EENT Eyes: Present: PERRL ENT: hearing intact, clear oral mucosa - Neck Neck: Present: supple, normal ROM - Respiratory Respiratory effort: normal Respiratory: bilateral: diminished - Cardiovascular Heart Sounds: Present: S1 & S2. Absent: rub, click - Extremities Extremities: pulses symmetrical, No edema Peripheral Pulses: within normal limits - Abdominal General gastrointestinal: Present: soft, non-tender, non-distended, normal bowel sounds Male genitourinary: Present: normal - Integumentary Integumentary: Present: clear, warm, dry - Musculoskeletal Musculoskeletal: gait normal, strength equal bilaterally - Psychiatric Psychiatric: appropriate mood/affect, intact judgment & insight - Neurologic Neurologic: CNII-XII intact, moves all extremities Results - Lab Results 10/18/21 04:08 10/18/21 04:08 Most recent lab results Calcium 9.7 mg/dL (8.4-10.2) 10/18/21 04:08 Assessment and Plan (1) Pneumonia due to COVID-19 virus (2) ROMANA (acute kidney injury) (3) Hyperkalemia (4) Hypertension (5) Steroid-induced hyperglycemia (6) Uncontrolled diabetes mellitus (7) CHF Medical management for hyperkalemia ordered, recheck BMP Low K diet Check Urine studies, Renal US, CK level CXR clear, start NS at 75 cc/hr. Renally dose all meds Avoid Nephrotoxic meds Strict I/O No acute EXHAUSTER indication now.
[2021-10-18] MEDS ORDERED: MAGNESIUM 30 MG PO SCH (10:00)
[2021-10-18] MEDS ORDERED: LISINOPRIL 20 MG TAB PO SCH (10:00)
[2021-10-18] MEDS ORDERED: FAMOTIDINE 20 MG TAB PO SCH (10:00)
[2021-10-18] MEDS: INSULIN LISPRO 100 UNIT/ML SUB-Q SCH ×4 (10:03→22:15)
[2021-10-18] MEDS: CLOPIDOGREL 75 MG TAB PO SCH (10:07)
[2021-10-18] MEDS: dexAMETHasone 4 MG/ML VIAL IV SCH (10:07)
[2021-10-18] MEDS: ASPIRIN EC 81 MG TAB PO SCH (10:07)
[2021-10-18] MEDS: amLODIPine 10 MG TAB PO SCH (10:07)
[2021-10-18] MEDS: FAMOTIDINE 10 MG TAB PO SCH ×2 (10:07→22:15)
[2021-10-18] MEDS: OSELTAMIVIR 75 MG CAP PO SCH ×2 (10:08→22:18)
[2021-10-18] MEDS ORDERED: INSULIN GLARGINE 100 UNITS/ML SUB-Q ONE ×2 (11:00→13:00)
--- NOTE | 2021-10-18 11:44 | Electrocardiograph Report ---
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
[2021-10-18 17:33] LABS: Calcium 9.8 mg/dL (8.4-10.2)
--- NOTE | 2021-10-18 19:40 | Progress Note ---
Assessment and Plan Assessment and plan: 71-year-old male with history of CHF, diabetes, hypertension, AICD and pacemaker presents to the hospital requesting oxygen for recently diagnosed Covid pneumonia. Patient was recently admitted to [facility] October 12 for Covid pneumonia. He was discharged on albuterol, Thorazine, Plavix, and dexamethasone. He was informed to discontinue his Lasix and spironolactone. Patient only complains of mild intermittent shortness of breath and persistent cough. Does not endorse chest pain, orthopnea, PND, worsening leg edema. Patient states when he was discharged from [facility], he was informed if he needed oxygen to come to the hospital. Patient is initial room air saturation is 96% without any respiratory distress noted during initial interview. Upon further interviewing patient he endorses that since discharge from the hospital and starting Decadron his glucose has been reading high on the glucometer. His states that he has been slight gauge had generalized weakness with ambulation. Patient takes Tresiba sliding scale subcu, Metformin 500 mg twice daily for glucose greater than 170-180 and glimepiride unknown dose daily. Despite these medications glucose has remained elevated. BG 433 In the emergency room patient WBC 16.4, BUN of 56 creatinine of 2.0 and blood glucose of 480, chest x-ray showed mild right lower lobe airspace disease concerning for pneumonia. No signs of significant hypoxia requiring supplemental oxygen. Suspect that patient generalized weakness is related to hyperglycemia secondary to steroids despite taking his diabetes medications. Case discussed with dice spotter and will consult. Medications ordered for hyperkalemia. (1) recently diagnosed pneumonia due to COVID-19 virus Current Visit: Yes Status: Acute Plan to address problem: Just discharged from [place]. Wean off to room air, currently no respiratory distress. No need for antibiotic therapy. (2) ROMANA (acute kidney injury) Current Visit: Yes Status: Acute Plan to address problem: Improving. Avoid nephrotoxic drug. Renally dose medication. We will hold Lasix and spironolactone. Nephrology consulted and following. (3) Hyperkalemia Current Visit: Yes Status: Acute Plan to address problem: Patient already get insulin Kayexalate. And other hyperkalemia medication. We will hold Lasix and spironolactone. Hyperkalemia improving. Nephrology evaluation. Recheck BMP in the morning (4) Hypertension Current Visit: Yes Status: Acute Plan to address problem: Amlodipine 10 mg p.o. daily. Lisinopril 20 mg p.o. daily. We will monitor the blood pressure closely (5) Steroid-induced hyperglycemia Current Visit: Yes Status: Acute Plan to address problem: 1800 kcal ADA diet. Accu-Chek before meals and at bedtime with Humalog moderate dose coverage. Diabetic education Hypoglycemia much improved since. (6) Uncontrolled diabetes mellitus, A1c 11.5 Current Visit: Yes Status: Acute Plan to address problem: 1800 kcal ADA diet. Accu-Chek before meals and at bedtime with Humalog moderate dose coverage. Diabetic education (7) CHF exacerbation Current Visit: No Status: Acute Plan to address problem: Fluid restriction. Maintain input output. Daily weight. Outpatient cardiology evaluation (8) DVT prophylaxis Current Visit: Yes Status: Acute Plan to address problem: Heparin 5000 units subcu every 8 hours for DVT prophylaxis. Pepcid 20 mg p.o. twice daily for GI prophylaxis. Patient is a full code Time spent in direct Patient care: 35 minutes History Interval history: Patient is currently asymptomatic. Hyperglycemia better, ROMANA progress improv ing, nephrology following. Remains on room air. Hospitalist Physical - Constitutional Vitals: Temp Pulse Resp BP Pulse Ox 98.9 F 91 H 18 158/83 98 10/18/21 11:51 10/18/21 11:51 10/18/21 11:51 10/18/21 11:51 10/18/21 13:13 General appearance: Present: no acute distress, well-nourished - EENT Eyes: Present: PERRL, EOM intact ENT: clear oral mucosa - Neck Neck: Present: supple - Respiratory Respiratory effort: normal Respiratory: bilateral: CTA - Cardiovascular Rhythm: regular - Extremities Extremities: No edema - Abdominal General gastrointestinal: soft, non-tender, non-distended - Integumentary Integumentary: Absent: rash - Psychiatric Psychiatric: appropriate mood/affect - Neurologic Neurologic: no focal deficits, moves all extremities HEART Score - HEART Score Troponin: Troponin T 0.053 ng/mL (0.00-0.029) H 10/17/21 23:43 Results - Labs CBC & Chem 7: 10/19/21 09:00 10/19/21 09:00 Labs: Laboratory Last Values WBC 14.5 K/mm3 (4.5-11.0) H 10/18/21 04:08 RBC 4.62 M/mm3 (3.65-5.03) 10/18/21 04:08 Hgb 12.7 gm/dl (11.8-15.2) 10/18/21 04:08 Hct 40.0 % (35.5-45.6) 10/18/21 04:08 MCV 87 fl (84-94) 10/18/21 04:08 MCH 27 pg (28-32) L 10/18/21 04:08 MCHC 32 % (32-34) 10/18/21 04:08 RDW 14.6 % (13.2-15.2) 10/18/21 04:08 Plt Count 312 K/mm3 (140-440) 10/18/21 04:08 Lymph % (Auto) 5.6 % (13.4-35.0) L 10/18/21 04:08 [place] % (Auto) 6.3 % (0.0-7.3) 10/18/21 04:08 Eos % (Auto) 0.3 % (0.0-4.3) 10/18/21 04:08 Baso % (Auto) 0.1 % (0.0-1.8) 10/18/21 04:08 Lymph # (Auto) 0.8 K/mm3 (1.2-5.4) L 10/18/21 04:08 [place] # (Auto) 0.9 K/mm3 (0.0-0.8) H 10/18/21 04:08 Eos # (Auto) 0.0 K/mm3 (0.0-0.4) 10/18/21 04:08 Baso # (Auto) 0.0 K/mm3 (0.0-0.1) 10/18/21 04:08 Add Manual Diff Complete 10/17/21 19:54 Total Counted 100 10/17/21 19:54 Seg Neutrophils % 87.7 % (40.0-70.0) H 10/18/21 04:08 Seg Neuts % (Manual) 88.0 % (40.0-70.0) H 10/17/21 19:54 Band Neutrophils % 0 % 10/17/21 19:54 Lymphocytes % (Manual) 5.0 % (13.4-35.0) L 10/17/21 19:54 Reactive Lymphs % (Man) 0 % 10/17/21 19:54 Monocytes % (Manual) 7.0 % (0.0-7.3) 10/17/21 19:54 Eosinophils % (Manual) 0 % (0.0-4.3) 10/17/21 19:54 Basophils % (Manual) 0 % (0.0-1.8) 10/17/21 19:54 Metamyelocytes % 0 % 10/17/21 19:54 Myelocytes % 0 % 10/17/21 19:54 Promyelocytes % 0 % 10/17/21 19:54 Blast Cells % 0 % 10/17/21 19:54 Nucleated RBC % Not Reportable 10/17/21 19:54 Seg Neutrophils # 12.7 K/mm3 (1.8-7.7) H 10/18/21 04:08 Seg Neutrophils # Man 14.4 K/mm3 (1.8-7.7) H 10/17/21 19:54 Band Neutrophils # 0.0 K/mm3 10/17/21 19:54 Lymphocytes # (Manual) 0.8 K/mm3 (1.2-5.4) L 10/17/21 19:54 Abs React Lymphs (Man) 0.0 K/mm3 10/17/21 19:54 Monocytes # (Manual) 1.1 K/mm3 (0.0-0.8) H 10/17/21 19:54 Eosinophils # (Manual) 0.0 K/mm3 (0.0-0.4) 10/17/21 19:54 Basophils # (Manual) 0.0 K/mm3 (0.0-0.1) 10/17/21 19:54 Metamyelocytes # 0.0 K/mm3 10/17/21 19:54 Myelocytes # 0.0 K/mm3 10/17/21 19:54 Promyelocytes # 0.0 K/mm3 10/17/21 19:54 Blast Cells # 0.0 K/mm3 10/17/21 19:54 WBC Morphology Not Reportable 10/17/21 19:54 Hypersegmented Neuts Not Reportable 10/17/21 19:54 Hyposegmented Neuts Not Reportable 10/17/21 19:54 Hypogranular Neuts Not Reportable 10/17/21 19:54 Smudge Cells Not Reportable 10/17/21 19:54 Toxic Granulation Not Reportable 10/17/21 19:54 Toxic Vacuolation Not Reportable 10/17/21 19:54 Dohle Bodies Not Reportable 10/17/21 19:54 Pelger-Huet Anomaly Not Reportable 10/17/21 19:54 Michael Rods Not Reportable 10/17/21 19:54 Platelet Estimate Consistent w auto 10/17/21 19:54 Clumped Platelets Not Reportable 10/17/21 19:54 Plt Clumps, EDTA Not Reportable 10/17/21 19:54 Large Platelets Not Reportable 10/17/21 19:54 Giant Platelets Not Reportable 10/17/21 19:54 Platelet Satelliting Not Reportable 10/17/21 19:54 Plt Morphology Comment Not Reportable 10/17/21 19:54 RBC Morphology Not Reportable 10/17/21 19:54 Dimorphic RBCs Not Reportable 10/17/21 19:54 Polychromasia Not Reportable 10/17/21 19:54 Hypochromasia Not Reportable 10/17/21 19:54 Poikilocytosis Not Reportable 10/17/21 19:54 Anisocytosis 1+ 10/17/21 19:54 Microcytosis Not Reportable 10/17/21 19:54 Macrocytosis Not Reportable 10/17/21 19:54 Spherocytes Not Reportable 10/17/21 19:54 Pappenheimer Bodies Not Reportable 10/17/21 19:54 Sickle Cells Not Reportable 10/17/21 19:54 Target Cells Not Reportable 10/17/21 19:54 Tear Drop Cells Not Reportable 10/17/21 19:54 Ovalocytes Not Reportable 10/17/21 19:54 Helmet Cells Not Reportable 10/17/21 19:54 [place] Bodies Not Reportable 10/17/21 19:54 [place] Rings Not Reportable 10/17/21 19:54 [place] Cells Not Reportable 10/17/21 19:54 Bite Cells Not Reportable 10/17/21 19:54 Crenated Cell Not Reportable 10/17/21 19:54 Elliptocytes Not Reportable 10/17/21 19:54 Acanthocytes (Spur) Not Reportable 10/17/21 19:54 Rouleaux Not Reportable 10/17/21 19:54 Hemoglobin C Crystals Not Reportable 10/17/21 19:54 Schistocytes Not Reportable 10/17/21 19:54 Malaria parasites Not Reportable 10/17/21 19:54 [place] Bodies Not Reportable 10/17/21 19:54 Hem Pathologist Commnt No 10/17/21 19:54 VBG pH 7.384 (7.320-7.420) 10/17/21 19:54 Sodium 132 mmol/L (137-145) L 10/18/21 16:44 Potassium 5.0 mmol/L (3.6-5.0) D 10/18/21 16:44 Chloride 97.3 mmol/L (98-107) L 10/18/21 16:44 Carbon Dioxide 22 mmol/L (22-30) 10/18/21 16:44 Anion Gap 18 mmol/L 10/18/21 16:44 BUN 54 mg/dL (9-20) H 10/18/21 16:44 Creatinine 1.8 mg/dL (0.8-1.3) H 10/18/21 16:44 Estimated GFR 45 ml/min 10/18/21 16:44 BUN/Creatinine Ratio 30 % 10/18/21 16:44 Glucose 128 mg/dL (75-100) H 10/18/21 16:44 POC Glucose 112 mg/dL (70-105) H 10/18/21 16:02 Hemoglobin A1c 11.5 % (4-6) H 10/18/21 04:08 Calcium 9.8 mg/dL (8.4-10.2) 10/18/21 16:44 Total Bilirubin 0.40 mg/dL (0.1-1.2) 10/17/21 19:54 AST 24 units/L (5-40) 10/17/21 19:54 ALT 41 units/L (7-56) 10/17/21 19:54 Alkaline Phosphatase 146 units/L (35-129) H 10/17/21 19:54 Troponin T 0.053 ng/mL (0.00-0.029) H 10/17/21 23:43 Total Protein 7.3 g/dL (6.3-8.2) 10/17/21 19:54 Albumin 3.4 g/dL (3.9-5) L 10/17/21 19:54 Albumin/Globulin Ratio 0.9 % 10/17/21 19:54 Triglycerides 248 mg/dL (2-149) H 10/17/21 19:54 Cholesterol 98 mg/dL (50-199) 10/17/21 19:54 LDL Cholesterol Direct 44 mg/dL (50-130) L 10/17/21 19:54 HDL Cholesterol 31 mg/dL (40-59) L 10/17/21 19:54 Cholesterol/HDL Ratio 3.16 % 10/17/21 19:54 Urine Color Yellow (Yellow) 10/17/21 23:00 Urine Turbidity Clear (Clear) 10/17/21 23:00 Urine pH 5.0 (5.0-7.0) 10/17/21 23:00 Ur Specific [place] 1.015 (1.003-1.030) 10/17/21 23:00 Urine Protein 30 mg/dl mg/dL (Negative) 10/17/21 23:00 Urine Glucose (UA) >=500 mg/dL (Negative) 10/17/21 23:00 Urine Ketones Neg mg/dL (Negative) 10/17/21 23:00 Urine Blood Neg (Negative) 10/17/21 23:00 Urine Nitrite Neg (Negative) 10/17/21 23:00 Urine Bilirubin Neg (Negative) 10/17/21 23:00 Urine Urobilinogen < 2.0 mg/dL (<2.0) 10/17/21 23:00 Ur Leukocyte Esterase Neg (Negative) 10/17/21 23:00 Urine WBC (Auto) 1.0 /HPF (0.0-6.0) 10/17/21 23:00 Urine RBC (Auto) 1.0 /HPF (0.0-6.0) 10/17/21 23:00 Hyaline Casts 1 /LPF 10/17/21 23:00 Urine Mucus Few /HPF 10/17/21 23:00 Wheat/IV: Voiding Method Toilet Active Medications - Current Medications Current Medications: Generic Name Dose Route Start Last Admin Trade Name Freq PRN Reason Stop Dose Admin Acetaminophen 650 mg 10/17/21 22:42 Acetaminophen 325 Mg Tab PO Q4H PRN Pain MILD(1-3)/Fever >100.5/[place] Amlodipine Besylate 10 mg 10/18/21 10:00 10/18/21 10:07 Amlodipine 10 Mg Tab PO 10 mg DAILY MICHELLE Administration Aspirin 81 mg 10/18/21 10:00 10/18/21 10:07 Aspirin Ec 81 Mg Tab PO 81 mg QDAY MICHELLE Administration Atorvastatin Calcium 40 mg 10/18/21 22:00 Atorvastatin 40 Mg Tab PO HS MICHELLE Carvedilol 2 mg 10/18/21 10:00 Carvedilol 3.125 Mg Tab PO BID MICHELLE Clopidogrel Bisulfate 75 mg 10/18/21 10:00 10/18/21 10:07 Clopidogrel 75 Mg Tab PO 75 mg DAILY MICHELLE Administration Dexamethasone 6 mg 10/18/21 10:00 10/18/21 10:07 Dexamethasone 4 Mg/Ml Vial IV 6 mg DAILY MICHELLE Administration Dextrose 0 ml 10/17/21 22:59 Dextrose 10% *Hypoglycemia IV PRN PRN Hypoglycemia Protocol Famotidine 10 mg 10/18/21 10:00 10/18/21 10:07 Famotidine 10 Mg Tab PO 10 mg BID MICHELLE Administration Heparin Sodium (Porcine) 5,000 unit 10/18/21 06:00 10/18/21 14:48 Heparin 5,000 Unit/1 Ml Vial SUB-Q 5,000 unit Q8HR [facility] Administration Ceftriaxone Sodium 2 gm in 100 mls @ 200 mls/hr 10/17/21 23:00 10/18/21 01:48 Rocephin/Ns 2 Gm/100 Ml IV 200 mls/hr Q24H [facility] Administration Protocol Azithromycin 500 mg in 250 mls @ 250 mls/hr 10/17/21 23:00 10/18/21 01:48 Zithromax/Ns IV 250 mls/hr Q24H [facility] Administration Protocol Sodium Chloride 1,000 mls @ 75 mls/hr 10/18/21 15:45 Nacl 0.9% 1000 Ml IV DIRECT [facility] Insulin Human Lispro 0 unit 10/18/21 07:30 10/18/21 17:03 Insulin Lispro 100 Unit/Ml SUB-Q Not Given ACHS [facility] Protocol Miscellaneous Medication 30 mg 10/18/21 10:00 Magnesium [Magnesium] PO QDAY [facility] Ondansetron HCl 4 mg 10/17/21 22:42 Ondansetron 4 Mg/2 Ml Inj IV Q8H PRN Nausea And Vomiting Oseltamivir Phosphate 75 mg 10/18/21 10:00 10/18/21 10:08 Oseltamivir 75 Mg Cap PO 75 mg BID MICHELLE Administration Sodium Chloride 10 ml 10/18/21 10:00 10/18/21 10:08 Sodium Chloride 0.9% 10 Ml Flush Syringe IV 10 ml BID MICHELLE Administration Sodium Chloride 10 ml 10/17/21 22:42 Sodium Chloride 0.9% 10 Ml Flush Syringe IV PRN PRN LINE FLUSH Nutrition/Malnutrition Assess - Dietary Evaluation Nutrition/Malnutrition Findings: Nutrition Notes Start: 10/18/21 12:34 Freq: Status: Active Protocol: Document 10/18/21 12:34 CW (Rec: 10/18/21 12:39 CW [id number]) Nutrition Notes Need for Assessment generated from: Education Initial or Follow up Brief Note Current Diagnosis Acute Kidney Injury,COPD, Diabetes,Hypertension,Heart Failure Other Pertinent Diagnosis Covid 19, Current Diet Cardiac/Consistent Carbohydrate Labs/Tests BG 392 HbA1c of 11.5 K 6.5 BUN 57 Cr 2.1 Na 129 Pertinent Medications Decadron Height 6 ft 1 in Weight 91.172 kg [place] Body Weight (kg) 83.63 BMI 26.5 Subjective/Other Information MD consult for DM diet education. pt unavailable by phone x 2. Elevated DM likely, and noted by MD, to be elevated d/t decadron/steroid usage. However, HgbA1c indicates hx of poor control. Pt likely needing K diet education as well. Pt [place] that cares for him. likely able to adjust meals to better meet nutrition needs. Nutrition Intervention Anticipated Discharge Needs: Cardiac Consistent Carbohydrate diet low in potassium Follow-Up By: 10/20/21 Additional Comments F/U for diet education
[2021-10-18] MEDS: oxyCODONE /ACETAMINOPHEN 5-325MG TAB PO PRN (23:40)
[2021-10-19] MEDS: HEPARIN 5,000 UNIT/1 ML VIAL SUB-Q SCH ×3 (05:21→22:08)
[2021-10-19] MEDS ORDERED: SODIUM CHLORIDE 0.9% 250ML 250 ML ONE (09:26)
[2021-10-19 09:39] LABS: Basophils % (Auto) 0.1 % (0.0-1.8); Eosinophils % (Auto) 0.3 % (0.0-4.3); Hematocrit 36.2 % (35.5-45.6); Hemoglobin 11.3 gm/dl (11.8-15.2); Lymphocytes # (Auto) 0.9 K/mm3 (1.2-5.4); Lymphocytes % (Auto) 8.1 % (13.4-35.0); Mean Corpuscular HGB Conc 31 % (32-34); Mean Corpuscular Volume 84 fl (84-94); Monocytes % (Auto) 8.6 % (0.0-7.3); Platelet Count 294 K/mm3 (140-440); Red Blood Count 4.31 M/mm3 (3.65-5.03); Red Cell Distribution Width 15.4 % (13.2-15.2)
[2021-10-19 09:53] LABS: Calcium 9.2 mg/dL (8.4-10.2)
[2021-10-19] MEDS: dexAMETHasone 4 MG/ML VIAL IV SCH (09:54)
[2021-10-19] MEDS: FAMOTIDINE 10 MG TAB PO SCH ×2 (09:54→22:06)
[2021-10-19] MEDS: amLODIPine 10 MG TAB PO SCH (09:54)
[2021-10-19] MEDS: CLOPIDOGREL 75 MG TAB PO SCH (09:54)
[2021-10-19] MEDS: ASPIRIN EC 81 MG TAB PO SCH (09:54)
[2021-10-19] MEDS: OSELTAMIVIR 75 MG CAP PO SCH ×2 (09:55→22:07)
[2021-10-19] MEDS: oxyCODONE /ACETAMINOPHEN 5-325MG TAB PO PRN ×3 (10:22→22:07)
--- NOTE | 2021-10-19 10:40 | Progress Note ---
Assessment and Plan (1) Pneumonia due to COVID-19 virus (2) ROMANA (acute kidney injury) (3) Hyperkalemia (4) Hypertension (5) Steroid-induced hyperglycemia (6) Uncontrolled diabetes mellitus (7) CHF K better with medical management Low K diet UA bland Renal US -ve for hydronephrosis Check CK level CXR clear, on NS at 75 cc/hr. Cr trending down. Renally dose all meds Avoid Nephrotoxic meds Strict I/O No acute GUIDE ESCORT indication now. Subjective Date of service: 10/19/21 Interval history: Making urine. NAD. Objective - Exam Narrative Exam: General appearance: Present: no acute distress, well-nourished - EENT Eyes: Present: PERRL ENT: hearing intact, clear oral mucosa - Neck Neck: Present: supple, normal ROM - Respiratory Respiratory effort: normal Respiratory: bilateral: diminished - Cardiovascular Heart Sounds: Present: S1 & S2. Absent: rub, click - Extremities Extremities: pulses symmetrical, No edema Peripheral Pulses: within normal limits - Abdominal General gastrointestinal: Present: soft, non-tender, non-distended, normal bowel sounds Male genitourinary: Present: normal - Integumentary Integumentary: Present: clear, warm, dry - Musculoskeletal Musculoskeletal: gait normal, strength equal bilaterally - Psychiatric Psychiatric: appropriate mood/affect, intact judgment & insight - Neurologic Neurologic: CNII-XII intact, moves all extremities - Vital Signs Vital signs: Vital Signs - 12hr 10/19/21 10/19/21 00:40 04:50 Temperature 98.6 F Pulse Rate 100 H Respiratory 20 18 Rate Blood Pressure 171/87 O2 Sat by Pulse 97 Oximetry - Lab 10/19/21 09:00 10/19/21 09:00 Most recent lab results Calcium 9.2 mg/dL (8.4-10.2) 10/19/21 09:00 Medications & Allergies - Medications Allergies/Adverse Reactions: Allergies No Known Allergies Allergy (Verified 02/13/15 12:20) Home Medications: Home Medications Medication Instructions Recorded Confirmed Last Taken Type Aspirin EC [Halfprin EC] 81 mg PO QDAY 02/05/17 10/18/21 02/02/17 History AtorvaSTATin [Lipitor] 40 mg PO HS 02/05/17 10/18/21 02/04/17 History Clopidogrel Bisulfate [Plavix] 75 mg PO DAILY #30 tablet 02/05/17 10/18/21 Unknown Rx Furosemide 40 mg PO QDAY 02/05/17 10/18/21 02/04/17 History Gabapentin [Neurontin] 800 mg PO Q8H 02/05/17 10/18/21 02/04/17 History Magnesium 30 mg PO QDAY 02/05/17 10/18/21 02/04/17 History Oxycodone HCl/Acetaminophen 1 each PO Q6HR PRN 02/05/17 10/18/21 02/04/17 History [Percocet 10/325 mg] Tizanidine HCl [Zanaflex] 4 mg PO TID PRN 02/05/17 10/18/21 02/04/17 History carvediloL [Coreg] 2 mg PO BID 02/05/17 10/18/21 02/04/17 History Azithromycin [Zithromax TAB] 500 mg PO QDAY #3 tablet 09/27/19 10/18/21 Unknown Rx Oseltamivir [Tamiflu] 75 mg PO BID #6 capsule 09/27/19 10/18/21 Unknown Rx Spironolactone [Aldactone] 25 mg PO QDAY #30 tablet 09/27/19 10/18/21 Unknown Rx amLODIPine 10 mg PO DAILY #30 tablet 09/27/19 10/18/21 Unknown Rx lisinopriL [Zestril TAB] 20 mg PO DAILY #30 tablet 09/27/19 10/18/21 Unknown Rx Active Medications: Generic Name Dose Route Start Last Admin Trade Name Freq PRN Reason Stop Dose Admin Acetaminophen 650 mg 10/17/21 22:42 Acetaminophen 325 Mg Tab PO Q4H PRN Pain MILD(1-3)/Fever >100.5/[place] Amlodipine Besylate 10 mg 10/18/21 10:00 10/19/21 09:54 Amlodipine 10 Mg Tab PO 10 mg DAILY MICHELLE Administration Aspirin 81 mg 10/18/21 10:00 10/19/21 09:54 Aspirin Ec 81 Mg Tab PO 81 mg QDAY MICHELLE Administration Atorvastatin Calcium 40 mg 10/18/21 22:00 10/18/21 22:36 Atorvastatin 40 Mg Tab PO 40 mg HS MICHELLE Administration Carvedilol 2 mg 10/18/21 10:00 Carvedilol 3.125 Mg Tab PO BID MICHELLE Clopidogrel Bisulfate 75 mg 10/18/21 10:00 10/19/21 09:54 Clopidogrel 75 Mg Tab PO 75 mg DAILY MICHELLE Administration Dexamethasone 6 mg 10/18/21 10:00 10/19/21 09:54 Dexamethasone 4 Mg/Ml Vial IV 6 mg DAILY MICHELLE Administration Dextrose 0 ml 10/17/21 22:59 Dextrose 10% *Hypoglycemia IV PRN PRN Hypoglycemia Protocol Famotidine 10 mg 10/18/21 10:00 10/19/21 09:54 Famotidine 10 Mg Tab PO 10 mg BID MICHELLE Administration Heparin Sodium (Porcine) 5,000 unit 10/18/21 06:00 10/19/21 05:21 Heparin 5,000 Unit/1 Ml Vial SUB-Q 5,000 unit Q8HR MICHELLE Administration Ceftriaxone Sodium 2 gm in 100 mls @ 200 mls/hr 10/17/21 23:00 10/18/21 22:36 Rocephin/Ns 2 Gm/100 Ml IV 200 mls/hr Q24H MICHELLE Administration Protocol Azithromycin 500 mg in 250 mls @ 250 mls/hr 10/17/21 23:00 10/18/21 22:36 Zithromax/Ns IV 250 mls/hr Q24H [facility] Administration Protocol Sodium Chloride 1,000 mls @ 75 mls/hr 10/18/21 15:45 Nacl 0.9% 1000 Ml IV DIRECT [facility] Insulin Human Lispro 0 unit 10/18/21 07:30 10/18/21 22:15 Insulin Lispro 100 Unit/Ml SUB-Q 3 unit ACHS [facility] Administration Protocol Miscellaneous Medication 30 mg 10/18/21 10:00 Magnesium [Magnesium] PO QDAY [facility] Ondansetron HCl 4 mg 10/17/21 22:42 Ondansetron 4 Mg/2 Ml Inj IV Q8H PRN Nausea And Vomiting Oseltamivir Phosphate 75 mg 10/18/21 10:00 10/19/21 09:55 Oseltamivir 75 Mg Cap PO 75 mg BID [facility] Administration Oxycodone/Acetaminophen 1 tab 10/18/21 23:28 10/19/21 10:22 Oxycodone /Acetaminophen 5-325mg Tab PO 1 tab Q6H PRN Administration Pain, Moderate (4-6) Sodium Chloride 10 ml 10/18/21 10:00 10/18/21 22:16 Sodium Chloride 0.9% 10 Ml Flush Syringe IV 10 ml BID MICHELLE Administration Sodium Chloride 10 ml 10/17/21 22:42 Sodium Chloride 0.9% 10 Ml Flush Syringe IV PRN PRN LINE FLUSH
[2021-10-19 10:46] LABS: Creatinine,Urine 91.3 mg/dL (0.1-20.0); Protein/Creatinine Ratio,Urine 0.25
[2021-10-19] MEDS: INSULIN LISPRO 100 UNIT/ML SUB-Q SCH ×4 (12:03→22:09)
[2021-10-19] MEDS: SODIUM CHLORIDE 0.9% 1000 ML 1,000 ML IV SCH ×2 (12:09→16:33)
--- NOTE | 2021-10-19 15:02 | Ultrasound Report ---
ULTRASOUND RENAL INDICATION: delvin COMPARISON: No relevant prior imaging study available. FINDINGS: RIGHT KIDNEY: Size: 10.8 cm. Echogenicity: Normal. Cortical thickness: Normal. Stones: None. Hydronephrosis: None. Cyst or mass: None. LEFT KIDNEY: Size: 10.6 cm. Echogenicity: Normal. Cortical thickness: Normal. Stones: None. Hydronephrosis: None. Cyst or mass: None. Urinary Bladder: No significant abnormality. Free Fluid: None. Additional Findings: None. IMPRESSION: No acute sonographic abnormality of the kidneys Signer Name: Armin Maguire MD Signed: 10/19/2021 2:57 PM Workstation Name: [id number]
--- NOTE | 2021-10-19 17:07 | Progress Note ---
Assessment and Plan Assessment and plan: 71-year-old male with history of CHF, diabetes, hypertension, AICD and pacemaker presents to the hospital requesting oxygen for recently diagnosed Covid pneumonia. Patient was recently admitted to [facility] October 12 for Covid pneumonia. He was discharged on albuterol, Thorazine, Plavix, and dexamethasone. He was informed to discontinue his Lasix and spironolactone. Patient only complains of mild intermittent shortness of breath and persistent cough. Does not endorse chest pain, orthopnea, PND, worsening leg edema. Patient states when he was discharged from [facility], he was informed if he needed oxygen to come to the hospital. Patient is initial room air saturation is 96% without any respiratory distress noted during initial interview. Upon further interviewing patient he endorses that since discharge from the hospital and starting Decadron his glucose has been reading high on the glucometer. His states that he has been slight gauge had generalized weakness with ambulation. Patient takes Tresiba sliding scale subcu, Metformin 500 mg twice daily for glucose greater than 170-180 and glimepiride unknown dose daily. Despite these medications glucose has remained elevated. BG 433 In the emergency room patient WBC 16.4, BUN of 56 creatinine of 2.0 and blood glucose of 480, chest x-ray showed mild right lower lobe airspace disease concerning for pneumonia. No signs of significant hypoxia requiring supplemental oxygen. Suspect that patient generalized weakness is related to hyperglycemia secondary to steroids despite taking his diabetes medications. Case discussed with loaf counter and will consult. Medications ordered for hyperkalemia. (1) recently diagnosed pneumonia due to COVID-19 virus Current Visit: Yes Status: Acute Plan to address problem: Just discharged from [facility]. Wean off to room air, currently no respiratory distress. No need for antibiotic therapy. (2) ROMANA (acute kidney injury) Current Visit: Yes Status: Acute Plan to address problem: Improving. Avoid nephrotoxic drug. Renally dose medication. We will hold Lasix and spironolactone. Nephrology consulted and following. (3) Hyperkalemia Current Visit: Yes Status: Acute Plan to address problem: Patient already get insulin Kayexalate. And other hyperkalemia medication. We will hold Lasix and spironolactone. Hyperkalemia improving. Nephrology evaluation. Recheck BMP in the morning (4) Hypertension Current Visit: Yes Status: Acute Plan to address problem: Amlodipine 10 mg p.o. daily. Lisinopril 20 mg p.o. daily. We will monitor the blood pressure closely (5) Steroid-induced hyperglycemia Current Visit: Yes Status: Acute Plan to address problem: 1800 kcal ADA diet. Accu-Chek before meals and at bedtime with Humalog moderate dose coverage. Diabetic education Hypoglycemia much improved since. (6) Uncontrolled diabetes mellitus, A1c 11.5 Current Visit: Yes Status: Acute Plan to address problem: 1800 kcal ADA diet. Accu-Chek before meals and at bedtime with Humalog moderate dose coverage. Diabetic education (7) CHF exacerbation Current Visit: No Status: Acute Plan to address problem: Fluid restriction. Maintain input output. Daily weight. Outpatient cardiology evaluation (8) DVT prophylaxis Current Visit: Yes Status: Acute Plan to address problem: Heparin 5000 units subcu every 8 hours for DVT prophylaxis. Pepcid 20 mg p.o. twice daily for GI prophylaxis. Patient is a full code Time spent in direct Patient care: 35 minutes Disposition: ROMANA and hyperkalemia progress improving. Possible discharge tomorrow. He should not resume spironolactone. History Interval history: Patient is currently asymptomatic. Hyperglycemia better, ROMANA progress improving, hyperkalemia resolved. Spironolactone is on hold. Nephrology following. Remains on room air. Hospitalist Physical - Constitutional Vitals: Temp Pulse Resp BP Pulse Ox 98.1 F 100 H 18 141/68 93 10/19/21 12:15 10/19/21 12:15 10/19/21 12:15 10/19/21 12:15 10/19/21 12:15 General appearance: Present: no acute distress, well-nourished - EENT Eyes: Present: PERRL, EOM intact ENT: clear oral mucosa - Neck Neck: Present: supple - Respiratory Respiratory effort: normal Respiratory: bilateral: CTA - Cardiovascular Rhythm: regular - Extremities Extremities: No edema - Abdominal General gastrointestinal: soft, non-tender, non-distended - Integumentary Integumentary: Absent: rash - Psychiatric Psychiatric: appropriate mood/affect - Neurologic Neurologic: no focal deficits, moves all extremities HEART Score - HEART Score Troponin: Troponin T 0.053 ng/mL (0.00-0.029) H 10/17/21 23:43 Results - Labs CBC & Chem 7: 10/19/21 09:00 10/19/21 09:00 Labs: Laboratory Last Values WBC 11.8 K/mm3 (4.5-11.0) H 10/19/21 09:00 RBC 4.31 M/mm3 (3.65-5.03) 10/19/21 09:00 Hgb 11.3 gm/dl (11.8-15.2) L 10/19/21 09:00 Hct 36.2 % (35.5-45.6) 10/19/21 09:00 MCV 84 fl (84-94) 10/19/21 09:00 MCH 26 pg (28-32) L 10/19/21 09:00 MCHC 31 % (32-34) L 10/19/21 09:00 RDW 15.4 % (13.2-15.2) H 10/19/21 09:00 Plt Count 294 K/mm3 (140-440) 10/19/21 09:00 Lymph % (Auto) 8.1 % (13.4-35.0) L 10/19/21 09:00 [place] % (Auto) 8.6 % (0.0-7.3) H 10/19/21 09:00 Eos % (Auto) 0.3 % (0.0-4.3) 10/19/21 09:00 Baso % (Auto) 0.1 % (0.0-1.8) 10/19/21 09:00 Lymph # (Auto) 0.9 K/mm3 (1.2-5.4) L 10/19/21 09:00 [place] # (Auto) 1.0 K/mm3 (0.0-0.8) H 10/19/21 09:00 Eos # (Auto) 0.0 K/mm3 (0.0-0.4) 10/19/21 09:00 Baso # (Auto) 0.0 K/mm3 (0.0-0.1) 10/19/21 09:00 Add Manual Diff Complete 10/17/21 19:54 Total Counted 100 10/17/21 19:54 Seg Neutrophils % 82.9 % (40.0-70.0) H 10/19/21 09:00 Seg Neuts % (Manual) 88.0 % (40.0-70.0) H 10/17/21 19:54 Band Neutrophils % 0 % 10/17/21 19:54 Lymphocytes % (Manual) 5.0 % (13.4-35.0) L 10/17/21 19:54 Reactive Lymphs % (Man) 0 % 10/17/21 19:54 Monocytes % (Manual) 7.0 % (0.0-7.3) 10/17/21 19:54 Eosinophils % (Manual) 0 % (0.0-4.3) 10/17/21 19:54 Basophils % (Manual) 0 % (0.0-1.8) 10/17/21 19:54 Metamyelocytes % 0 % 10/17/21 19:54 Myelocytes % 0 % 10/17/21 19:54 Promyelocytes % 0 % 10/17/21 19:54 Blast Cells % 0 % 10/17/21 19:54 Nucleated RBC % Not Reportable 10/17/21 19:54 Seg Neutrophils # 9.8 K/mm3 (1.8-7.7) H 10/19/21 09:00 Seg Neutrophils # Man 14.4 K/mm3 (1.8-7.7) H 10/17/21 19:54 Band Neutrophils # 0.0 K/mm3 10/17/21 19:54 Lymphocytes # (Manual) 0.8 K/mm3 (1.2-5.4) L 10/17/21 19:54 Abs React Lymphs (Man) 0.0 K/mm3 10/17/21 19:54 Monocytes # (Manual) 1.1 K/mm3 (0.0-0.8) H 10/17/21 19:54 Eosinophils # (Manual) 0.0 K/mm3 (0.0-0.4) 10/17/21 19:54 Basophils # (Manual) 0.0 K/mm3 (0.0-0.1) 10/17/21 19:54 Metamyelocytes # 0.0 K/mm3 10/17/21 19:54 Myelocytes # 0.0 K/mm3 10/17/21 19:54 Promyelocytes # 0.0 K/mm3 10/17/21 19:54 Blast Cells # 0.0 K/mm3 10/17/21 19:54 WBC Morphology Not Reportable 10/17/21 19:54 Hypersegmented Neuts Not Reportable 10/17/21 19:54 Hyposegmented Neuts Not Reportable 10/17/21 19:54 Hypogranular Neuts Not Reportable 10/17/21 19:54 Smudge Cells Not Reportable 10/17/21 19:54 Toxic Granulation Not Reportable 10/17/21 19:54 Toxic Vacuolation Not Reportable 10/17/21 19:54 Dohle Bodies Not Reportable 10/17/21 19:54 Pelger-Huet Anomaly Not Reportable 10/17/21 19:54 Michael Rods Not Reportable 10/17/21 19:54 Platelet Estimate Consistent w auto 10/17/21 19:54 Clumped Platelets Not Reportable 10/17/21 19:54 Plt Clumps, EDTA Not Reportable 10/17/21 19:54 Large Platelets Not Reportable 10/17/21 19:54 Giant Platelets Not Reportable 10/17/21 19:54 Platelet Satelliting Not Reportable 10/17/21 19:54 Plt Morphology Comment Not Reportable 10/17/21 19:54 RBC Morphology Not Reportable 10/17/21 19:54 Dimorphic RBCs Not Reportable 10/17/21 19:54 Polychromasia Not Reportable 10/17/21 19:54 Hypochromasia Not Reportable 10/17/21 19:54 Poikilocytosis Not Reportable 10/17/21 19:54 Anisocytosis 1+ 10/17/21 19:54 Microcytosis Not Reportable 10/17/21 19:54 Macrocytosis Not Reportable 10/17/21 19:54 Spherocytes Not Reportable 10/17/21 19:54 Pappenheimer Bodies Not Reportable 10/17/21 19:54 Sickle Cells Not Reportable 10/17/21 19:54 Target Cells Not Reportable 10/17/21 19:54 Tear Drop Cells Not Reportable 10/17/21 19:54 Ovalocytes Not Reportable 10/17/21 19:54 Helmet Cells Not Reportable 10/17/21 19:54 [employer] Bodies Not Reportable 10/17/21 19:54 [place] Rings Not Reportable 10/17/21 19:54 Tyrel Cells Not Reportable 10/17/21 19:54 Bite Cells Not Reportable 10/17/21 19:54 Crenated Cell Not Reportable 10/17/21 19:54 Elliptocytes Not Reportable 10/17/21 19:54 Acanthocytes (Spur) Not Reportable 10/17/21 19:54 Rouleaux Not Reportable 10/17/21 19:54 Hemoglobin C Crystals Not Reportable 10/17/21 19:54 Schistocytes Not Reportable 10/17/21 19:54 Malaria parasites Not Reportable 10/17/21 19:54 Ector Bodies Not Reportable 10/17/21 19:54 Hem Pathologist Commnt No 10/17/21 19:54 VBG pH 7.384 (7.320-7.420) 10/17/21 19:54 Sodium 140 mmol/L (137-145) D 10/19/21 09:00 Potassium 4.3 mmol/L (3.6-5.0) 10/19/21 09:00 Chloride 102.7 mmol/L (98-107) 10/19/21 09:00 Carbon Dioxide 24 mmol/L (22-30) 10/19/21 09:00 Anion Gap 18 mmol/L 10/19/21 09:00 BUN 50 mg/dL (9-20) H 10/19/21 09:00 Creatinine 1.5 mg/dL (0.8-1.3) H 10/19/21 09:00 Estimated GFR 56 ml/min 10/19/21 09:00 BUN/Creatinine Ratio 33 % 10/19/21 09:00 Glucose 165 mg/dL (75-100) H 10/19/21 09:00 POC Glucose 256 mg/dL (70-105) H 10/19/21 16:28 Hemoglobin A1c 11.5 % (4-6) H 10/18/21 04:08 Calcium 9.2 mg/dL (8.4-10.2) 10/19/21 09:00 Total Bilirubin 0.40 mg/dL (0.1-1.2) 10/17/21 19:54 AST 24 units/L (5-40) 10/17/21 19:54 ALT 41 units/L (7-56) 10/17/21 19:54 Alkaline Phosphatase 146 units/L (35-129) H 10/17/21 19:54 Troponin T 0.053 ng/mL (0.00-0.029) H 10/17/21 23:43 Total Protein 7.3 g/dL (6.3-8.2) 10/17/21 19:54 Albumin 3.4 g/dL (3.9-5) L 10/17/21 19:54 Albumin/Globulin Ratio 0.9 % 10/17/21 19:54 Triglycerides 248 mg/dL (2-149) H 10/17/21 19:54 Cholesterol 98 mg/dL (50-199) 10/17/21 19:54 LDL Cholesterol Direct 44 mg/dL (50-130) L 10/17/21 19:54 HDL Cholesterol 31 mg/dL (40-59) L 10/17/21 19:54 Cholesterol/HDL Ratio 3.16 % 10/17/21 19:54 Urine Color Yellow (Yellow) 10/17/21 23:00 Urine Turbidity Clear (Clear) 10/17/21 23:00 Urine pH 5.0 (5.0-7.0) 10/17/21 23:00 Ur Specific [place] 1.015 (1.003-1.030) 10/17/21 23:00 Urine Protein 30 mg/dl mg/dL (Negative) 10/17/21 23:00 Urine Glucose (UA) >=500 mg/dL (Negative) 10/17/21 23:00 Urine Ketones Neg mg/dL (Negative) 10/17/21 23:00 Urine Blood Neg (Negative) 10/17/21 23:00 Urine Nitrite Neg (Negative) 10/17/21 23:00 Urine Bilirubin Neg (Negative) 10/17/21 23:00 Urine Urobilinogen < 2.0 mg/dL (<2.0) 10/17/21 23:00 Ur Leukocyte Esterase Neg (Negative) 10/17/21 23:00 Urine WBC (Auto) 1.0 /HPF (0.0-6.0) 10/17/21 23:00 Urine RBC (Auto) 1.0 /HPF (0.0-6.0) 10/17/21 23:00 Hyaline Casts 1 /LPF 10/17/21 23:00 Urine Mucus Few /HPF 10/17/21 23:00 Urine Eosinophils None seen (None Seen) 10/19/21 Unknown Urine Creatinine 91.3 mg/dL (0.1-20.0) H 10/19/21 Unknown Protein/Creatinin Ratio 0.25 10/19/21 Unknown Urine Sodium 49 mmol/L 10/19/21 Unknown Urine Total Protein 23 mg/dL (5-11.8) H 10/19/21 Unknown Wheat/IV: Voiding Method Toilet Active Medications - Current Medications Current Medications: Generic Name Dose Route Start Last Admin Trade Name Freq PRN Reason Stop Dose Admin Acetaminophen 650 mg 10/17/21 22:42 Acetaminophen 325 Mg Tab PO Q4H PRN Pain MILD(1-3)/Fever >100.5/[place] Amlodipine Besylate 10 mg 10/18/21 10:00 10/19/21 09:54 Amlodipine 10 Mg Tab PO 10 mg DAILY MICHELLE Administration Aspirin 81 mg 10/18/21 10:00 10/19/21 09:54 Aspirin Ec 81 Mg Tab PO 81 mg QDAY MICHELLE Administration Atorvastatin Calcium 40 mg 10/18/21 22:00 10/18/21 22:36 Atorvastatin 40 Mg Tab PO 40 mg HS MICHELLE Administration Carvedilol 2 mg 10/18/21 10:00 Carvedilol 3.125 Mg Tab PO BID MICHELLE Clopidogrel Bisulfate 75 mg 10/18/21 10:00 10/19/21 09:54 Clopidogrel 75 Mg Tab PO 75 mg DAILY MICHELLE Administration Dexamethasone 6 mg 10/18/21 10:00 10/19/21 09:54 Dexamethasone 4 Mg/Ml Vial IV 6 mg DAILY MICHELLE Administration Dextrose 0 ml 10/17/21 22:59 Dextrose 10% *Hypoglycemia IV PRN PRN Hypoglycemia Protocol Famotidine 10 mg 10/18/21 10:00 10/19/21 09:54 Famotidine 10 Mg Tab PO 10 mg BID MICHELLE Administration Heparin Sodium (Porcine) 5,000 unit 10/18/21 06:00 10/19/21 13:14 Heparin 5,000 Unit/1 Ml Vial SUB-Q 5,000 unit Q8HR MICHELLE Administration Ceftriaxone Sodium 2 gm in 100 mls @ 200 mls/hr 10/17/21 23:00 10/18/21 22:36 Rocephin/Ns 2 Gm/100 Ml IV 200 mls/hr Q24H MICHELLE Administration Protocol Azithromycin 500 mg in 250 mls @ 250 mls/hr 10/17/21 23:00 10/18/21 22:36 Zithromax/Ns IV 250 mls/hr Q24H MICHELLE Administration Protocol Sodium Chloride 1,000 mls @ 75 mls/hr 10/18/21 15:45 10/19/21 16:33 Nacl 0.9% 1000 Ml IV 75 mls/hr DIRECT MICHELLE Administration Insulin Human Lispro 0 unit 10/18/21 07:30 10/19/21 16:55 Insulin Lispro 100 Unit/Ml SUB-Q 4 unit ACHS MICHELLE Administration Protocol Miscellaneous Medication 30 mg 10/18/21 10:00 Magnesium [Magnesium] PO QDAY MICHELLE Ondansetron HCl 4 mg 10/17/21 22:42 Ondansetron 4 Mg/2 Ml Inj IV Q8H PRN Nausea And Vomiting Oseltamivir Phosphate 75 mg 10/18/21 10:00 10/19/21 09:55 Oseltamivir 75 Mg Cap PO 75 mg BID MICHELLE Administration Oxycodone/Acetaminophen 1 tab 10/18/21 23:28 10/19/21 16:33 Oxycodone /Acetaminophen 5-325mg Tab PO 1 tab Q6H PRN Administration Pain, Moderate (4-6) Sodium Chloride 10 ml 10/18/21 10:00 10/18/21 22:16 Sodium Chloride 0.9% 10 Ml Flush Syringe IV 10 ml BID MICHELLE Administration Sodium Chloride 10 ml 10/17/21 22:42 Sodium Chloride 0.9% 10 Ml Flush Syringe IV PRN PRN LINE FLUSH Nutrition/Malnutrition Assess - Dietary Evaluation Nutrition/Malnutrition Findings: Nutrition Notes Start: 10/18/21 12:34 Freq: Status: Active Protocol: Document 10/18/21 12:34 CW (Rec: 10/18/21 12:39 [id number]) Nutrition Notes Need for Assessment generated from: Education Initial or Follow up Brief Note Current Diagnosis Acute Kidney Injury,COPD, Diabetes,Hypertension,Heart Failure Other Pertinent Diagnosis Covid 19, Current Diet Cardiac/Consistent Carbohydrate Labs/Tests BG 392 HbA1c of 11.5 K 6.5 BUN 57 Cr 2.1 Na 129 Pertinent Medications Decadron Height 6 ft 1 in Weight 91.172 kg [place] Body Weight (kg) 83.63 BMI 26.5 Subjective/Other Information MD consult for DM diet education. pt unavailable by phone x 2. Elevated DM likely, and noted by MD, to be elevated d/t decadron/steroid usage. However, HgbA1c indicates hx of poor control. Pt likely needing K diet education as well. Pt [place] that cares for him. likely able to adjust meals to better meet nutrition needs. Nutrition Intervention Anticipated Discharge Needs: Cardiac Consistent Carbohydrate diet low in potassium Follow-Up By: 10/20/21 Additional Comments F/U for diet education
[2021-10-19] MEDS: cefTRIAXone/NS 2 GM/100 ML 2 GM/100 ML BAG IV SCH ×2 (22:10→23:36)
[2021-10-19] MEDS: AZITHROMYCIN/NS 500 MG/250 ML 500 MG/250 ML BAG IV SCH (22:10)
[2021-10-20] MEDS: HEPARIN 5,000 UNIT/1 ML VIAL SUB-Q SCH ×2 (05:28→13:03)
[2021-10-20] MEDS: INSULIN LISPRO 100 UNIT/ML SUB-Q SCH ×2 (07:00→13:01)
[2021-10-20] MEDS ORDERED: carvediloL 3.125 MG TAB PO SCH (10:00)
[2021-10-20] MEDS ORDERED: DEXAMETHASONE 4 MG TAB PO SCH (10:00)
[2021-10-20] MEDS: oxyCODONE /ACETAMINOPHEN 5-325MG TAB PO PRN (11:11)
[2021-10-20] MEDS: ASPIRIN EC 81 MG TAB PO SCH (11:12)
[2021-10-20] MEDS: amLODIPine 10 MG TAB PO SCH (11:13)
[2021-10-20] MEDS: CLOPIDOGREL 75 MG TAB PO SCH (11:13)
[2021-10-20] MEDS: FAMOTIDINE 10 MG TAB PO SCH (11:14)
--- NOTE | 2021-10-20 11:31 | Progress Note ---
Assessment and Plan (1) Pneumonia due to COVID-19 virus (2) ROMANA (acute kidney injury) (3) Hyperkalemia (4) Hypertension (5) Steroid-induced hyperglycemia (6) Uncontrolled diabetes mellitus (7) CHF Lab are pending this AM Renal US -ve for hydronephrosis CXR clear, cont NS at 75 cc/hr. Cr trending down. Renally dose all meds Avoid Nephrotoxic meds Strict I/O No acute THERMAL INTELLIGENCE ANALYST indication now. Subjective Date of service: 10/20/21 Principal diagnosis: ROMANA Interval history: No overnight events Objective - Vital Signs Vital signs: Vital Signs - 12hr 10/20/21 04:30 Temperature 98.2 F Pulse Rate 85 Respiratory 18 Rate Blood Pressure 147/81 O2 Sat by Pulse 96 Oximetry - Lab 10/19/21 09:00 10/19/21 09:00 Most recent lab results Calcium 9.2 mg/dL (8.4-10.2) 10/19/21 09:00 Urine Creatinine 91.3 mg/dL (0.1-20.0) H 10/19/21 Unknown Urine Sodium 49 mmol/L 10/19/21 Unknown Urine Total Protein 23 mg/dL (5-11.8) H 10/19/21 Unknown Medications & Allergies - Medications Allergies/Adverse Reactions: Allergies No Known Allergies Allergy (Verified 02/13/15 12:20) Home Medications: Home Medications Medication Instructions Recorded Confirmed Last Taken Type Aspirin EC [Halfprin EC] 81 mg PO QDAY 02/05/17 10/18/21 02/02/17 History AtorvaSTATin [Lipitor] 40 mg PO HS 02/05/17 10/18/21 02/04/17 History Clopidogrel Bisulfate [Plavix] 75 mg PO DAILY #30 tablet 02/05/17 10/18/21 Unknown Rx Furosemide 40 mg PO QDAY 02/05/17 10/18/21 02/04/17 History Gabapentin [Neurontin] 800 mg PO Q8H 02/05/17 10/18/21 02/04/17 History Magnesium 30 mg PO QDAY 02/05/17 10/18/21 02/04/17 History Oxycodone HCl/Acetaminophen 1 each PO Q6HR PRN 02/05/17 10/18/21 02/04/17 History [Percocet 10/325 mg] Tizanidine HCl [Zanaflex] 4 mg PO TID PRN 02/05/17 10/18/21 02/04/17 History carvediloL [Coreg] 2 mg PO BID 02/05/17 10/18/21 02/04/17 History Azithromycin [Zithromax TAB] 500 mg PO QDAY #3 tablet 09/27/19 10/18/21 Unknown Rx Oseltamivir [Tamiflu] 75 mg PO BID #6 capsule 09/27/19 10/18/21 Unknown Rx Spironolactone [Aldactone] 25 mg PO QDAY #30 tablet 09/27/19 10/18/21 Unknown Rx amLODIPine 10 mg PO DAILY #30 tablet 09/27/19 10/18/21 Unknown Rx lisinopriL [Zestril TAB] 20 mg PO DAILY #30 tablet 09/27/19 10/18/21 Unknown Rx Active Medications: Generic Name Dose Route Start Last Admin Trade Name Freq PRN Reason Stop Dose Admin Acetaminophen 650 mg 10/17/21 22:42 Acetaminophen 325 Mg Tab PO Q4H PRN Pain MILD(1-3)/Fever >100.5/[place] Amlodipine Besylate 10 mg 10/18/21 10:00 10/20/21 11:13 Amlodipine 10 Mg Tab PO 10 mg DAILY MICHELLE Administration Aspirin 81 mg 10/18/21 10:00 10/20/21 11:12 Aspirin Ec 81 Mg Tab PO 81 mg QDAY MICHELLE Administration Atorvastatin Calcium 40 mg 10/18/21 22:00 10/19/21 22:07 Atorvastatin 40 Mg Tab PO 40 mg HS MICHELLE Administration Carvedilol 3.125 mg 10/20/21 10:00 10/20/21 11:14 Carvedilol 3.125 Mg Tab PO 3.125 mg BID MICHELLE Administration Clopidogrel Bisulfate 75 mg 10/18/21 10:00 10/20/21 11:13 Clopidogrel 75 Mg Tab PO 75 mg DAILY MICHELLE Administration Dexamethasone 6 mg 10/20/21 10:00 10/20/21 11:13 Dexamethasone 4 Mg Tab PO 10/27/21 10:59 6 mg DAILY MICHELLE Administration Dextrose 0 ml 10/17/21 22:59 Dextrose 10% *Hypoglycemia IV PRN PRN Hypoglycemia Protocol Famotidine 10 mg 10/18/21 10:00 10/20/21 11:14 Famotidine 10 Mg Tab PO 10 mg BID MICHELLE Administration Heparin Sodium (Porcine) 5,000 unit 10/18/21 06:00 10/20/21 05:28 Heparin 5,000 Unit/1 Ml Vial SUB-Q 5,000 unit Q8HR MICHELLE Administration Ceftriaxone Sodium 2 gm in 100 mls @ 200 mls/hr 10/17/21 23:00 10/19/21 23:36 Rocephin/Ns 2 Gm/100 Ml IV 10/21/21 23:29 Not Given Q24H [facility] Protocol Azithromycin 500 mg in 250 mls @ 250 mls/hr 10/17/21 23:00 10/19/21 22:10 Zithromax/Ns IV 10/21/21 23:59 250 mls/hr Q24H MICHELLE Administration Protocol Sodium Chloride 1,000 mls @ 75 mls/hr 10/18/21 15:45 10/19/21 16:33 Nacl 0.9% 1000 Ml IV 75 mls/hr DIRECT MICHELLE Administration Insulin Human Lispro 0 unit 10/18/21 07:30 10/19/21 22:09 Insulin Lispro 100 Unit/Ml SUB-Q 3 unit ACHS MICHELLE Administration Protocol Miscellaneous Medication 30 mg 10/18/21 10:00 Magnesium [Magnesium] PO QDAY [facility] Ondansetron HCl 4 mg 10/17/21 22:42 Ondansetron 4 Mg/2 Ml Inj IV Q8H PRN Nausea And Vomiting Oxycodone/Acetaminophen 1 tab 10/18/21 23:28 10/20/21 11:11 Oxycodone /Acetaminophen 5-325mg Tab PO 1 tab Q6H PRN Administration Pain, Moderate (4-6) Sodium Chloride 10 ml 10/18/21 10:00 10/20/21 11:14 Sodium Chloride 0.9% 10 Ml Flush Syringe IV 10 ml BID MICHELLE Administration Sodium Chloride 10 ml 10/17/21 22:42 Sodium Chloride 0.9% 10 Ml Flush Syringe IV PRN PRN LINE FLUSH
--- NOTE | 2021-10-20 14:03 | Discharge Summary ---
Providers - Providers Date of Admission: 10/17/21 22:43 Attending physician: ADRIANNE MOELLER 10/17/21 20:59 Consult to Physician [CONS] Urgent Comment: Consulting Provider: NIKOLAS MEREDITH Physician Instructions: Reason For Exam: renal sufficiency, hyperkalemia 10/17/21 22:46 Consult to Dietitian/Nutrition [CONS] Routine Physician Instructions: Reason For Exam: Reason for Consult: Diet education Primary care physician: [facility] MD LONI Hospitalization Condition: Stable Disposition: 30 STILL A PATIENT Exam - Constitutional Vitals: Temp Pulse Resp BP Pulse Ox 98.2 F 85 18 147/81 95 10/20/21 04:30 10/20/21 04:30 10/20/21 04:30 10/20/21 04:30 10/20/21 13:38 [facility] [Primary Care Provider[facility] - 3-5 Days Prescriptions: Azithromycin 250 mg PO DAILY #6 Prednisone [predniSONE 10 mg (6-Day Pack, 21 Tabs)] 10 mg PO .TAPER #1
[2021-10-20 15:29] VITALS: BP 156/94
== END 2021-10-20 16:45 | disposition home or self-care (01) | DRG 177 ==
LOC: ED 18:09 → 3A 22:43
PROVIDERS: ADMIT Hospitalist; ATTEND Internal Medicine
DX: U07.1 COVID-19 (principal); J12.82 Pneumonia due to coronavirus disease 2019; N17.9 Acute kidney failure, unspecified; E11.65 Type 2 diabetes mellitus with hyperglycemia; I50.9 Heart failure, unspecified; E87.5 Hyperkalemia; R73.9 Hyperglycemia, unspecified; I11.0 Hypertensive heart disease with heart failure; M19.90 Unspecified osteoarthritis, unspecified site
CPT/HCPCS: 36415; 71046; 76770; 80048; 80053; 80061; 81001; 82550; 82570; 82805; 82962; 83036; 84156; 84300; 84484; 85007; 85025; 89050; 93005; 93010; 94644; G0378; J3490; Q0162; Q9967; J0456; J0610; J0696; J1100; J1644; J1815; J1940; J7030; J7040; J8540

== ENCOUNTER 2021-10-31 17:28 | Emergency (ER) | payer MEDICARE ==
[2021-10-31 17:34] VITALS: BP 130/78
--- NOTE | 2021-11-01 15:29 | Emergency Department Report ---
ED General Adult HPI - General Chief complaint: Hypoglycemia Stated complaint: DIABETIC PROBLEM Time Seen by Provider: 11/01/21 11:07 Source: EMS Mode of arrival: Ambulatory Limitations: No Limitations - History of Present Illness Initial comments: low BS -: Sudden Severity scale (0 -10): 0 - Related Data Home Medications Medication Instructions Recorded Confirmed Last Taken Aspirin EC [Halfprin EC] 81 mg PO QDAY 02/05/17 10/18/21 10/16/21 AtorvaSTATin [Lipitor] 40 mg PO HS 02/05/17 10/18/21 10/16/21 Furosemide 40 mg PO QDAY 02/05/17 10/18/21 10/16/21 Gabapentin [Neurontin] 800 mg PO Q8H 02/05/17 10/18/21 10/16/21 Oxycodone HCl/Acetaminophen 1 each PO Q4H PRN 02/05/17 10/20/21 10/17/21 [Percocet 10/325 mg] Albuterol Mdi (or & Nicu Only) 2 puff IH Q4H PRN 10/20/21 10/20/21 10/16/21 [ProAir HFA Inhaler] Ferrous Sulfate [High Potency Iron 27 mg PO QDAY 10/20/21 10/20/21 10/16/21 27 MG] Fluticasone [Flonase] 1 spray NS QDAY 10/20/21 10/20/21 10/16/21 Glimepiride [Amaryl] 2 mg PO QDAY 10/20/21 10/20/21 10/16/21 Insulin Degludec [Tresiba 40 units SQ QDAY 10/20/21 10/20/21 10/16/21 Flextouch U-100] Tretinoin [Atralin 0.05%] 1 applicatio TP QPM 10/20/21 10/20/21 10/16/21 Tumeric 1,500 mg PO QDAY 10/20/21 10/16/21 carvediloL [Coreg] 12.5 mg PO QDAY 10/20/21 10/20/21 10/16/21 chlorproMAZINE [Thorazine] 1 tab PO TID PRN 10/20/21 10/20/21 10/16/21 dexAMETHasone [Dexamethasone] 1 tab PO DAILY 10/20/21 10/20/2122 Previous Rx's Medication Instructions Recorded Last Taken Type Spironolactone [Aldactone] 25 mg PO QDAY #30 tablet 09/27/19 10/16/21 Rx amLODIPine 10 mg PO DAILY #30 tablet 09/27/19 10/16/21 Rx Azithromycin 250 mg PO DAILY #6 10/20/21 Unknown Rx Prednisone [predniSONE 10 mg 10 mg PO .TAPER #1 10/20/21 Unknown Rx (6-Day Pack, 21 Tabs)] Allergies Allergy/AdvReac Type Severity Reaction Status Date / Time No Known Allergies Allergy Verified 10/31/21 17:31 ED Review of Systems ROS: Stated complaint: DIABETIC PROBLEM Other details as noted in HPI ED Past Medical Hx - Past Medical History Hx Hypertension: Yes Hx Congestive Heart Failure: Yes Hx Diabetes: Yes (pt takes insulin) Hx Arthritis: Yes Hx HIV: No - Surgical History Hx Pacemaker: Yes Hx Internal Defibrillator: Yes - Social History Smoking Status: Former Smoker - Medications Home Medications: Home Medications Medication Instructions Recorded Confirmed Last Taken Type Aspirin EC [Halfprin EC] 81 mg PO QDAY 02/05/17 10/18/21 10/16/21 History AtorvaSTATin [Lipitor] 40 mg PO HS 02/05/17 10/18/21 10/16/21 History Furosemide 40 mg PO QDAY 02/05/17 10/18/21 10/16/21 History Gabapentin [Neurontin] 800 mg PO Q8H 02/05/17 10/18/21 10/16/21 History Oxycodone HCl/Acetaminophen 1 each PO Q4H PRN 02/05/17 10/20/21 10/17/21 History [Percocet 10/325 mg] Spironolactone [Aldactone] 25 mg PO QDAY #30 tablet 09/27/19 10/18/21 10/16/21 Rx amLODIPine 10 mg PO DAILY #30 tablet 09/27/19 10/18/21 10/16/21 Rx Albuterol Mdi (or & Nicu Only) 2 puff IH Q4H PRN 10/20/21 10/20/21 10/16/21 History [ProAir HFA Inhaler] Azithromycin 250 mg PO DAILY #6 10/20/21 Unknown Rx Ferrous Sulfate [High Potency Iron 27 mg PO QDAY 10/20/21 10/20/21 10/16/21 Hist ory 27 MG] Fluticasone [Flonase] 1 spray NS QDAY 10/20/21 10/20/21 10/16/21 History Glimepiride [Amaryl] 2 mg PO QDAY 10/20/21 10/20/21 10/16/21 History Insulin Degludec [Tresiba 40 units SQ QDAY 10/20/21 10/20/21 10/16/21 History Flextouch U-100] Prednisone [predniSONE 10 mg 10 mg PO .TAPER #1 10/20/21 Unknown Rx (6-Day Pack, 21 Tabs)] Tretinoin [Atralin 0.05%] 1 applicatio TP QPM 10/20/21 10/20/21 10/16/21 History Tumeric 1,500 mg PO QDAY 10/20/21 10/16/21 History carvediloL [Coreg] 12.5 mg PO QDAY 10/20/21 10/20/21 10/16/21 History chlorproMAZINE [Thorazine] 1 tab PO TID PRN 10/20/21 10/20/21 10/16/21 History dexAMETHasone [Dexamethasone] 1 tab PO DAILY 10/20/21 10/20/21 10/16/21 History ED Physical Exam - General Limitations: No Limitations ED Course Vital Signs 10/31/21 17:34 Temperature 98.2 F Pulse Rate 98 H Respiratory 18 Rate Blood Pressure 130/78 [Right] O2 Sat by Pulse 97 Oximetry - Reevaluation(s) Reevaluation #1: 11/01/21 15:28 pt left [facility] before being seen Critical care attestation.: If time is entered above; I have spent that time in minutes in the direct care of this critically ill patient, excluding procedure time. ED Disposition Clinical Impression: Hypoglycemia Disposition: 07 LEFT AGAINST MEDICAL ADVICE Is pt being admited?: No Does the pt Need Aspirin: No Condition: Stable Referrals: PRIMARY CARE, [Primary Care Provider] - 3-5 Days
[2021-11-01] MEDS ORDERED: LIDOCAINE (2%) 20 MG/1 ML VIAL 20 ML MDV INFILTRATI ONE (18:19)
== END 2021-11-02 09:49 | disposition left against medical advice (07) ==
LOC: ED 17:28
DX: E11.649 Type 2 diabetes mellitus with hypoglycemia without coma (principal); Z79.82 Long term (current) use of aspirin; Z79.4 Long term (current) use of insulin; Z79.899 Other long term (current) drug therapy
CPT/HCPCS: 99283